=== PATIENT | male | born 1950 | race Caucasian/White ===

== ENCOUNTER → 2019-04-02 09:57 | Outpatient (BNVA) | payer MEDICARE, SELFPAY | PROVIDERS: Family Provider Family Medicine; PCP Family Medicine; Visit Provider Nurse Practitioner | DX: F43.12 Post-traumatic stress disorder, chronic (principal) | CPT/HCPCS: 99213 ==

== ENCOUNTER → 2019-06-25 07:37 | Outpatient (BNVA) | payer MEDICARE, SELFPAY | PROVIDERS: Family Provider Family Medicine; PCP Family Medicine; Visit Provider Nurse Practitioner | DX: F43.12 Post-traumatic stress disorder, chronic (principal); F33.1 Major depressive disorder, recurrent, moderate | CPT/HCPCS: 99213 ==

== ENCOUNTER 2019-07-05 16:08 | Outpatient (CLI) | payer MEDICARE, SELFPAY ==
--- NOTE | 2019-07-05 | CTR_ITS ---
PROCEDURE INFORMATION: Exam: CT Lumbar Spine Without Contrast Exam date and time: 07/05/2019 5:40 PM Age: 68 years old Clinical indication: Low back pain TECHNIQUE: Imaging protocol: Computed tomography images of the lumbar spine without contrast. Radiation optimization: All CT scans at this facility use at least one of these dose optimization techniques: automated exposure control; mA and/or kV adjustment per patient size (includes targeted exams where dose is matched to clinical indication); or iterative reconstruction. COMPARISON: No relevant prior studies available. RADIATION DOSE METRICS: Total DLP: 2471.56 mGy-cm FINDINGS: Vertebrae: There is a large lytic lesion within the right half of of the L2 vertebra. There is a pathologic fracture of the inferior endplate. There is extraosseous extension of soft tissue mass into the right paraspinous soft tissue. No extradural extension. There is mild compression of the superior endplate of L3 also probably pathologic. No extraosseous mass seen at this level. There is a lytic lesion in the right transverse process of L5. There is a lytic lesion in the right vertebral body at L4. There is a lytic lesion at L1 with a small pathologic fracture of the superior endplate. No significant loss of height of these vertebra. At L1 there is minimal extension into the ventral epidural space on the left, series 3 image 12 and 13. L2-L3: L1-L2: No significant disc protrusion. No severe spinal canal stenosis. No significant neural foraminal narrowing. L2-L3: Small posterior osteophyte and disc bulge. No central stenosis. Facet hypertrophy with mild bilateral foraminal stenosis. L3-L4: Advanced disc space narrowing. Slight retrolisthesis. Facet hypertrophy. No central stenosis. Moderate right and more severe left foraminal stenosis. L4-L5: Mild disc bulge. Facet hypertrophy with moderate to severe bilateral foraminal stenosis. L5-S1: Mild disc bulge. No central or foraminal stenosis. Other bones/joints: There is a lytic lesion within the left T12 posterior rib. Soft tissues: See Vertebrae finding. CT/CT lumbar spine wo con* [id number] IMPRESSION: Multiple lytic lesions highly consistent with metastatic disease or myeloma. There is a particularly large lesion within the right half of the L2 vertebra with pathologic fracture of the inferior endplate. There is extraosseous extension of this mass into the right paraspinous soft tissue. At L1 there is a pathologic fracture of the superior endplate. There is minimal extradural extension into the left ventral spinal canal without significant narrowing. There is a pathologic fracture of the superior endplate of L3 without compression. There are additional smaller lytic lesions. Radiation Dose CTDIVOL = (mGy): DLP = 2471.56 (mGy-cm)
--- NOTE | 2019-07-05 | CTR_ITS ---
PROCEDURE INFORMATION: Exam: CT Chest With Contrast Exam date and time: 07/05/2019 5:40 PM Age: 68 years old Clinical indication: Cough and other: Hemoptysis TECHNIQUE: Imaging protocol: Computed tomography of the chest with intravenous contrast. Radiation optimization: All CT scans at this facility use at least one of these dose optimization techniques: automated exposure control; mA and/or kV adjustment per patient size (includes targeted exams where dose is matched to clinical indication); or iterative reconstruction. Contrast material: OMNI 300; Contrast volume: 95 ml; Contrast route: IV; COMPARISON: [facility] [place] Chest 2 views 04/24/2018 1:04 PM RADIATION DOSE METRICS: Total DLP: 2471.56 mGy-cm FINDINGS: Lungs: There are multiple lung masses. The dominant mass is in the superior segment of the left lower lobe and measures up to 6.6 cm. In size. A 2nd left lower lobe mass measures 4.2 cm. There are several left upper lobe nodules, the largest measures 14 mm. There are multiple nodules in the right lung. In the right upper lobe the largest measures 17 mm. There are multiple smaller nodules. There are small right middle lobe nodules measuring up to 6 mm. The dominant lesion in the right lower lobe measures 2.7 cm. There are several additional smaller nodules. Pleural space: There is a moderate to large left pleural effusion. Heart: Unremarkable. No cardiomegaly. No pericardial effusion. Aorta: Unremarkable. No aortic aneurysm. Lymph nodes: There are markedly enlarged left hilar lymph nodes measuring up to 2.7 cm. There is a lymph node adjacent to the esophagus on the left measuring 2.4 cm in short axis. A subcarinal lymph node measures 1.8 cm in short axis. A right hilar lymph node measures 1.0 cm in short axis. There are AP window lymph nodes measuring up to 1 cm in short axis. Spleen: There is splenomegaly, 19.5 cm as far as visualized. No focal lesion. Bones/joints: There is multilevel ankylosis of the thoracic spine secondary to diffuse idiopathic skeletal hyperostosis. No pathologic fracture. There are lytic lesions within several vertebra including T7 and T8. There is a larger lytic lesion in the left transverse process of T9. There is minimal extension into the left epidural space at this level without significant compromise of the spinal canal. There is a lytic lesion in the left 12th rib posteriorly near the costovertebral junction. There is a large lytic lesion in the right scapula. Soft tissues: Unremarkable. CT/CT chest w con* [id number] IMPRESSION: 1. Multiple pulmonary masses. The dominant mass in the left lower lobe measures 6.6 cm, possibly a primary lung carcinoma. Multiple additional bilateral masses seen in all segments are probably metastatic. If primary carcinoma has not previously been diagnosed, recommend tissue diagnosis as per Fleischner protocol. 2. Enlarged mediastinal and hilar lymph nodes consistent with metastatic adenopathy. 3. Lytic osseous lesions consistent with osseous metastases. Radiation Dose CTDIVOL = (mGy): DLP = 2471.56 (mGy-cm)
[2019-07-05 16:55] LABS: D Dimer 5.61 ug/mIFEU (0-0.59)
== END 2019-07-05 16:09 | disposition home or self-care (01) ==
PROVIDERS: Family Provider Family Medicine; PCP Family Medicine; Visit Provider Family Medicine
DX: R10.13 Epigastric pain (principal); R04.2 Hemoptysis; M54.5 Low back pain; R91.8 Other nonspecific abnormal finding of lung field; R59.9 Enlarged lymph nodes, unspecified; M48.8X6 Other specified spondylopathies, lumbar region
CPT/HCPCS: 71260; 72131; 85378; Q9967

== ENCOUNTER 2019-07-11 11:56 | Outpatient (CLI) | payer MEDICARE, SELFPAY ==
[2019-07-11 12:34] VITALS: BP 146/80; PULSE 94; RESP 16; TEMP 36.4; BMI 29.5
--- NOTE | 2019-07-11 13:24 | XR_ITS ---
WS: [id number] CHEST XRAY TECHNIQUE: Portable chest. CLINICAL INFORMATION: POST THORACENTESIS COMPARISON: July 05, 2019 FINDINGS: Heart: Cardiomegaly Lungs: Post thoracentesis. No visualized pneumothorax. Stable large left parenchymal mass measuring 9 x 6 cm. Stable 2 to 2.5 cm nodules right upper lobe. Bones: Normal visualized bony structures. XR/XR chest 1V portable [id number] IMPRESSION: 1. Left postthoracentesis. No pneumothorax. 2. Residual small left pleural effusion. 3. Stable bilateral parenchymal lesions.
--- NOTE | 2019-07-11 15:33 | PM.ACPR ---
Procedure/Consent Time out: Time Out Performed: Yes Consent: Consent for Procedure: Consent obtained from patient Procedure Narrative: Name of the procedure: Left thoracentesis. Indication: Suspicion for malignant pleural effusion Anesthetics: Local anesthesia with 1% lidocaine. IV pain medication: None. Description of the procedure: The procedure was explained to the patient in detail including the risks and a consent was obtained. The left hemithorax was scanned with ultrasound to find a safe fluid pocket. Moderate free-flowing fluid was noted. There was no complexity. Following identification of the fluid pocket the site was marked. The site was cleaned using sterile technique. Lidocaine 1% was injected into the skin and the subcutaneous tissue. Subsequently, the periosteum in the parietal pleural was also anesthetized using lidocaine. The pleural space was entered in the posterior axillary line in the left seventh intercostal space. Bloody pleural fluid fluid was aspirated. 1 L of pleural fluid was aspirated. Sample: The pleural fluid was sent for cell count and differential, pH, protein, LDH, Gram stain and culture, fungal stain and culture, AFB stain and culture and cytology. Postprocedure chest x-ray did not show any pneumothorax. Acute Procedures Epistaxis Control: Time out performed: Yes
[2019-07-11 16:10] LABS: Appearance, Pleural Fluid CLOUDY (CLEAR); Color, Pleural Fluid Red (Pale Yellow)
[2019-07-11 16:11] LABS: Mononuclear %, Pleural Fluid 91 %; Polynuclear Cells, Pleural % 9 %; WBC Pleural Fluid 1890 /uL (0-1000)
[2019-07-11 16:12] LABS: PATH Referal YES
[2019-07-11 17:17] LABS: LDH Pleural Fluid 1185 U/L; Total Protein Pleural Fluid 5.2 g/dL
== END 2019-07-11 11:57 | disposition home or self-care (01) ==
LOC: GILAB 11:59
PROVIDERS: PCP Family Medicine; Visit Provider Internal Medicine Critical Care Medicine
DX: J90 Pleural effusion, not elsewhere classified (principal)
CPT/HCPCS: 12345; 32555; 71045; 80500; 82945; 83615; 83986; 84157; 87070; 87075; 87205; 88112; 88305; 89050

== ENCOUNTER 2019-07-15 11:42 | Emergency (ER) | payer MEDICARE, SELFPAY ==
[2019-07-15 12:03] VITALS: BP 119/79; PULSE 129; RESP 18; TEMP 36.8; O2SAT 95; BMI 29.5
[2019-07-15 12:24] VITALS: BP 125/81; PULSE 113; RESP 16; O2SAT 93
--- NOTE | 2019-07-15 12:46 | MRR_ITS ---
PROCEDURE INFORMATION: Exam: MR Lumbar Spine Without and With Contrast. Exam date and time: 07/15/2019 2:48 PM Age: 68 years old Clinical indication: Condition or disease; Cancer, metastatic (secondary site lumbar); Other: Urinary retention; Patient HX: HX of myeloma; Additional info: Mets to spine, urinary retention TECHNIQUE: Imaging protocol: Multiplanar magnetic resonance images of the lumbar spine without and with intravenous contrast. Contrast material: PROHANCE; Contrast volume: 17 ml; Contrast route: IV; COMPARISON: CT lumbar spine wo con* [id number] 07/05/2019 5:57 PM FINDINGS: Vertebrae: There are multiple foci of abnormal signal within the vertebral marrow. These are seen as areas of hyperintense heterogeneous signal on STIR images and decreased signal on T1 weighted images. There is enhancement of these lesions. Most superiorly on the sagittal images a large lesion is seen within the right vertebra, pedicle and facet at T11. No axial images provided at this level. No extradural extension identified. There is a large lesion within the left transverse process of T12 seen on sagittal images. No axial images at this level.There is a large lesion within the left superior vertebral body at L1. This extends slightly into the left pedicle. Minimal extension into the left ventral epidural space is seen on sagittal images. This lesion also was not included on axial images. There is a large lesion within the right half of the vertebra at L2. There is extraosseous extension into the right paraspinous region, extending into the right psoas muscle. No extradural extension. There is a small lesion in the L4 vertebra and in the right pedicle and facet of L5 without extradural extension. Spinal cord: No abnormality of the lower thoracic spinal cord, conus or cauda equina. No compression of these structures. L1-L2: No significant disc disease. No significant spinal canal stenosis. No neural foraminal stenosis. L2-L3: Disc dehydration and disc space narrowing with a mild disc bulge. There is facet hypertrophy with mild bilateral foraminal stenosis. No central stenosis. L3-L4: Disc dehydration and disc space narrowing. Mild disc bulge. There is facet hypertrophy with moderate to severe foraminal stenosis. No central stenosis. L4-L5: Disc dehydration and disc space narrowing. Mild disc bulge. There is facet hypertrophy with severe bilateral foraminal stenosis. No central stenosis. L5-S1: No significant disc disease. No significant spinal canal stenosis. No neural foraminal stenosis. Soft tissues: Mild paraspinous muscle edema. MR/MR lumbar spine wo/w con [id number] IMPRESSION: 1. Metastatic disease at multiple levels. The largest lesion is within the right half of the L2 vertebra with extraosseous extension into the right psoas muscle. 2. Metastatic lesion within the superior left L1 vertebra with minimal extension into the ventral epidural space. There also large lesions in the left transverse process of T12 and in the right pedicle and transverse process of T11. These lesions were not included on axial images. 3. Smaller lesions are present within the vertebral body at L4 and the right pedicle of L5. 4. Degenerative findings detailed above.
[2019-07-15 12:50] LABS: Basophils % 0.3 %; Eosinophils # 0.1 10^3/uL (0.0-0.8); Eosinophils % 2.1 %; Hematocrit 43.8 % (42.0-52.0); Hemoglobin 14.5 g/dL (11.7-16.6); Lymphocytes # 0.7 10^3/uL (0.8-4.8); Lymphocytes % 10.5 %; Mean Corpuscular HGB Conc 33.1 g/dL (30.0-36.0); Mean Corpuscular Hemoglobin 29.3 pg (28.0-34.0); Mean Corpuscular Volume 88.5 fL (80-94); Mean Platelet Volume 10.4 fL (7.4-10.4); Monocytes # 0.6 10^3/uL (0.2-0.9); Monocytes % 9.2 %; Neutrophils # 4.8 10^3/uL (1.8-7.7); Neutrophils % 77.4 %; Nucleated Red Blood Cells % 0 %; Platelet Count 180 10^3/cmm (130-400); Red Blood Count 4.95 10^6/uL (4.1-5.3); Red Cell Distribution Width 13.3 % (12.1-15.1); White Blood Count 6.2 10^3/uL (4.0-10.0)
[2019-07-15] MEDS: ondansetron 2 mg/ML SDV 2 mL 4 MG IVP (12:51)
[2019-07-15] MEDS: morphine 4 mg/mL SDV 1 mL IVP (12:51)
[2019-07-15] MEDS: LORazepam 2 mg/mL INJ 1 mL 0.5 MG IVP (12:51)
[2019-07-15 13:04] LABS: Alanine Aminotransferase 7 U/L (0-41); Alkaline Phosphatase 79 IU/L (40-130); Anion Gap 18.2 (5-19); Aspartate Amino Transferase 18 U/L (0-40); Blood Urea Nitrogen 16 mg/dL (8-23); Calcium 9.5 mg/dL (8.5-10.5); Carbon Dioxide 24 mmol/L (22-29); Chloride 96 mmol/L (98-107); Globulin 3.2 g/dL (1.3-4.6); Glomerular Filtration Rate 133.2 mL/min (90-130); Glucose 139 mg/dL (65-115); Osmolality Calculated 277 mOsm/kg (285-295); Potassium 4.2 mmol/L (3.5-5.1); Sodium 134 mmol/L (136-145); Total Bilirubin 0.6 mg/dL (0.15-1.2); Total Protein 7.2 g/dL (6.6-8.7)
[2019-07-15 13:22] VITALS: BP 114/74; PULSE 106; RESP 16; O2SAT 93
[2019-07-15 13:29] LABS: Add Urine Microscopic? NO
[2019-07-15 13:32] LABS: Bilirubin Urine 1+ (NEGATIVE); Blood Urine Neg (Negative); Glucose Urine UA Norm (Normal); Ketones Urine 1+ (Negative); Leukocyte Esterase Urine Negative (Negative); Nitrate Urine Negative (Negative); Protein Urine Neg (Negative); Urine Appearance Clear (CLEAR); Urine Color Yellow (Yellow); Urobilinogen Urine Norm (Negative); pH Urine 5 (5-7)
--- NOTE | 2019-07-15 13:47 | W.ED.GENADLT ---
HPI - General Adult General: Chief complaint: General Medical Stated complaint: CANT URINATE Time Seen by Provider: 07/15/19 12:16 History of Present Illness: HPI narrative: Patient is a 68-year-old gentleman who comes in today complaining of back pain and inability to urinate. He tells me that on he was diagnosed with lung cancer and has bone mets in his lower back. He also tells me that he is had chronic back pain for years but it is been getting steadily worse recently. The last time he was able to urinate normally was 2 days ago. Since then he has been having increasing difficulty and this morning was only able to go about 3 tablespoons. He is having discomfort in his bladder area. He takes oxycodone at home and is taking it for years for his back pain. He tried taking tramadol yesterday but had a very unpleasant reaction to it with sweating and clamminess. Apparently he also was hallucinating with it. He took his usual oxycodone today but is still having significant pain. Onset (ago): day(s) (2) Location: back and pelvis Radiation: non-radiation Severity: severe Associated symptoms: Reports chest pain and dyspnea; Deny headache(s), malaise, nausea, rash or vomiting Review of Systems General: Reports: 10 or more systems reviewed and unremarkable except in HPI and below Const: Denies: fever(s), chills, fatigue or malaise Eyes: Denies: change in vision ENMT: Denies: odynophagia Card: Reports: chest pain and dyspnea on exertion; Denies: swelling of feet/ankles Resp: Reports: dyspnea, productive cough and hemoptysis; Denies: non-productive cough GI: Denies: abdominal pain, nausea or vomiting : Reports: difficulty urinating; Denies: flank pain Musc: Reports: back pain; Denies: neck pain, extremity pain or extremity swelling Skin/Breast: Denies: rash Neuro: Reports: difficulty walking (Secondary to pain); Denies: headache(s), numbness in extremities or weakness in extremities Andreas/Lymph: Denies: easy bruising or easy bleeding PFS ED PFSH: Medical History ASHD (arteriosclerotic heart disease) Hyperlipidemia Post-traumatic stress disorder, chronic Rotator cuff arthropathy Surgical History History of carpal tunnel surgery Stented coronary artery Family History Father CAD (coronary artery disease) Family history of premature coronary artery disease Sister CAD (coronary artery disease) Diabetes Brother CAD (coronary artery disease) Mother Cancer Social History Smoking and tobacco status: never smoked Alcohol intake: current Alcohol intake frequency: holidays/special occasions only Alcohol type: beer Lives independently: Yes Household members: spouse Marital status: Number of children: 1 Number of grandchildren: 4 Current occupational status: retired History of recent travel: No Current gender identity: Male Physical Exam Const: COMMON NORMALS: patient oriented x3, no limitations and alert GENERAL APPEARANCE: cooperative, in distress and anxious HENMT: HEAD & SCALP: normal to inspection FACE & SINUS: normal facial exam Eye: GENERAL EYE: appearance normal, both eyes and all related structures Neck/C-Spine: COMMON NORMALS: supple, no meningeal signs and no JVD Chest: COMMONS NORMALS: normal inspection of the chest Resp: COMMON NORMALS: normal respiratory effort, No use of accessory muscles and clear to auscultation bilaterally AUSCULTATION: clear to auscultation bilaterally Cardio: COMMON NORMALS: no JVD, regular rate, regular rhythm and No murmurs present (Cardio) RATE: regular rate RHYTHM: regular rhythm GI: COMMON NORMALS: Normal to inspection, nondistended, normoactive bowel sounds present, Soft to palpation and non-tender INSPECTION: Yes normal to inspection AUSCULTATION: Yes normoactive bowel sounds PALPATION: Yes Soft to palpation and Yes Bladder palpation abnormal : BLADDER/KIDNEY EXAM: Yes Bladder palpation abnormal Bladder abnormal details: tender and distended midway to the umbilicus Back/Pelvis: LUMBAR SPINE/LOWER BACK: Yes ROM limited and Yes pain with ROM Extremity: COMMON NORMALS: normal to inspection Neuro: COMMON NORMALS: patient oriented x3, moves all extremities, no focal motor deficits and no sensory deficits noted SENSORIUM/ORIENTATION: Yes alert MENINGEAL SIGNS: Yes no meningeal signs Psych: COMMON NORMALS: mental status grossly normal, cooperative and normal affect Skin: COMMON NORMALS: no rashes or lesions noted and turgor normal GENERAL SKIN EXAM: no rashes or lesions noted and turgor normal Course ED course: Patient with recent diagnosis of metastatic lung cancer. I also read in his previous chart that he has a history of melanoma and this could potentially be metastatic melanoma. He does have known bony mets in his back and now has inability to urinate. This could be related to medications or pain however given the known lesions I think an MRI is reasonable. He had a CT on July 04 showing these lesions particularly in L2 vertebrae inferior endplate fracture with extension into the soft tissue as well as some extension into the spinal canal. Reevaluation(s): Reevaluation #1: The patient reported feeling better after some pain medication. His MRI was done and showed extensive metastatic disease but did not show any compression whatsoever of the spinal cord. I offered him admission and he wanted very much to go home. He has been taking oxycodone at home but is afraid that he skin a run out before he sees his doctor next. I will respect his wishes to go home. I also gave him a new prescription for oxycodone. He understands that he is welcome to return if he does want better pain control or if he has any further problems. He was discharged with the Ha in place and a leg bag. Vital Signs: Vital signs: Vital Signs Temperature 98.3 F 07/15/19 12:03 Pulse Rate 100 07/15/19 16:50 Respiratory Rate 16 07/15/19 16:50 Blood Pressure 127/72 07/15/19 16:50 Pulse Oximetry 93 07/15/19 16:50 [facility] - General Adult Lab Data: Labs: Lab Results 07/15/19 07/15/19 07/15/19 Range/Units 12:40 12:40 13:10 WBC 6.2 (4.0-10.0) 10^3/ uL RBC 4.95 (4.1-5.3) 10^6/u L Hgb 14.5 (11.7-16.6) g/dL Hct 43.8 (42.0-52.0) % MCV 88.5 (80-94) fL MCH 29.3 (28.0-34.0) pg MCHC 33.1 (30.0-36.0) g/dL RDW 13.3 (12.1-15.1) % Plt Count 180 (130-400) 10^3/c mm MPV 10.4 (7.4-10.4) fL Neut % (Auto) 77.4 % Lymph % (Auto) 10.5 % Sequoyah % (Auto) 9.2 % Eos % (Auto) 2.1 % Baso % (Auto) 0.3 % Neut # (Auto) 4.8 (1.8-7.7) 10^3/u L Lymph # (Auto) 0.7 L (0.8-4.8) 10^3/u L Sequoyah # (Auto) 0.6 (0.2-0.9) 10^3/u L Eos # (Auto) 0.1 (0.0-0.8) 10^3/u L Baso # (Auto) 0.0 (0.0-0.1) 10^3/u L Nucleated RBC % (a uto) 0 % Nucleated RBCs # 0.0 /100WBC Sodium 134 L (136-145) mmol/L Potassium 4.2 (3.5-5.1) mmol/L Chloride 96 L (98-107) mmol/L Carbon Dioxide 24 (22-29) mmol/L Anion Gap 18.2 (5-19) BUN 16 (8-23) mg/dL Creatinine 0.6 L (0.7-1.2) mg/dL GFR Calculation 133.2 H (90-130) mL/min Glucose 139 H (65-115) mg/dL Calculated Osmolal ity 277 L (285-295) mOsm/k g Calcium 9.5 (8.5-10.5) mg/dL Total Bilirubin 0.6 (0.15-1.2) mg/dL AST 18 (0-40) U/L ALT 7 (0-41) U/L Alkaline Phosphata se 79 (40-130) IU/L Total Protein 7.2 (6.6-8.7) g/dL Albumin 4.0 (3.5-5.2) g/dL Globulin 3.2 (1.3-4.6) g/dL Urine Color Yellow (Yellow) Urine Appearance Clear (CLEAR) Urine pH 5 (5-7) Ur Specific Gravit y 1.020 (1.005-1.030) Urine Protein Neg (Negative) Urine Glucose (UA) Norm (Normal) Urine Ketones 1+ H (Negative) Urine Blood Neg (Negative) Urine Nitrate Negative (Negative) Urine Bilirubin 1+ H (NEGATIVE) Urine Urobilinogen Norm (Negative) mg/dL Ur Leukocyte Dottie ase Negative (Negative) Discharge Plan Discharge Patient Disposition: Home, Self-Care Clinical Impression: Metastatic cancer, Acute urinary retention Condition: Stable Prescriptions: New oxycodone 5 mg tablet 5 mg PO Q4H PRN (Reason: pain) Qty: 30 RF: 0 No Action famotidine 20 mg tablet 20 mg PO BID RF: 0 sertraline 100 mg tablet 200 mg PO Q24H Qty: 180 RF: 0 trazodone 100 mg tablet 100 mg PO .HS Qty: 90 RF: 0 prazosin 1 mg capsule 1 mg PO BID Qty: 180 RF: 0 clonazepam 0.5 mg tablet 0.5 mg PO BID PRN (Reason: anxiety) Qty: 60 RF: 2 gabapentin 300 mg capsule 300 mg PO TID RF: 0 atenolol 25 mg tablet 25 mg PO DAILY RF: 0 omega-3 fatty acids [Fish Oil Concentrate] 1,000 mg capsule 1,000 mg PO DAILY RF: 0 pravastatin 40 mg tablet 40 mg PO DAILY RF: 0 cetirizine [All Day Allergy (cetirizine)] 10 mg tablet 10 mg PO DAILY PRN (Reason: Allergic Symptoms) RF: 0 clopidogrel 75 mg tablet 75 mg PO DAILY RF: 0 meloxicam 15 mg tablet 15 mg PO DAILY RF: 0 Discharge Orders: Discharge Order (Routine); Ordered 07/15/19 Ordered By: Trisha Hardy Referrals: Casa Zhu MD [Primary Care Provider] - Discharge Diet: Usual diet Discharge Activity: Increase activity as tolerated Patient Instructions: Back Pain (ED) Activity Restrictions/Additional Instructions: Return to the ED if your pain is not controlled, or if any other concerns or problems. Discharge Date/Time: 07/15/19 16:53 Coding Level of Care Code ED [employer] Vehicle [employer] for [employer] F[employer] Exam Comprehensive
[2019-07-15 16:00] VITALS: BP 123/70; PULSE 103; RESP 12; O2SAT 89
[2019-07-15 16:50] VITALS: BP 127/72; PULSE 100; RESP 16; O2SAT 93
== END 2019-07-15 16:53 | disposition home or self-care (01) ==
PROVIDERS: Emergency Provider Emergency Medicine; PCP Family Medicine
DX: R33.9 Retention of urine, unspecified (principal); C34.90 Malignant neoplasm of unspecified part of unspecified bronchus or lung; E78.5 Hyperlipidemia, unspecified
CPT/HCPCS: 12345; 51702; 72158; 80053; 81003; 85025; 96374; 96375; 99283; A9579; J2060; J2270; J2405

== ENCOUNTER 2019-07-16 21:46 | Observation (INO) | payer MEDICARE, SELFPAY ==
[2019-07-16 21:49] VITALS: BP 133/79; PULSE 106; RESP 18; O2SAT 97; BMI 30.5
--- NOTE | 2019-07-16 21:53 | XR_ITS ---
WS: [id number] PORTABLE CHEST HISTORY: Pain COMPARISON: 07/11/2019 Bilateral pulmonary known metastases. The largest in the central LEFT lung with a maximum diameter of 5.9 cm. Overall taking into consideration difference in orientation no significant difference radiog raphically. Small LEFT pleural effusion is unchanged. LEFT basilar atelectasis. Cardiac size: Mildly enlarged cardiac silhouette. Mediastinum/Aorta: Normal mediastinum. No osseous abnormality seen. XR/XR chest 1V portable [id number] IMPRESSION: 1. Known bilateral pulmonary metastases. No significant change taking consider ation difference in positioning. 2. Small LEFT pleural effusion.
--- NOTE | 2019-07-16 21:58 | W.ED.ABDPA2 ---
HPI - Abdominal Pain General: Chief Complaint: Abdominal Pain Stated Complaint: RIGHT FLANK PAIN Time Seen by Provider: 07/16/19 21:51 History of Present Illness: HPI narrative: Mr. Castellanos is a very nice 68-year-old male who comes in with severe pain on his right flank. Patient states the pains been going on for 2 to 3 days now. He was seen here yesterday for this complaint along with urinary retention. He had a Ha catheter placed and an MRI performed which showed metastatic cancer to his spine but there was no evidence of cauda equina type syndrome. He got pain relief here but since going home he is developed worsening pain in his back and right flank. He has associated nausea but denies vomiting or any fevers or chills. He denies any chest pain or shortness of breath. He states oxycodone helps his pain for a short time but then it returns and he cannot get relief from this pain. Patient also states now he is seeing pieces of black sediment in his catheter. He does state that his catheter is continuing to drain and has not stopped draining urine. The patient has a recent diagnosis of lung cancer but has not started treatment. During history the patient has coughed up a small amount of blood. He states this is been going on for 2 weeks as well. Associated Symptoms: Reports hematuria and nausea; Denies chills, coffee ground emesis, constipation, GI cramping, diarrhea, dysuria, fever(s), heartburn, hematochezia, hematemesis, melena, syncope and vomiting Review of Systems Const: Reports: body aches; Denies: fever(s), chills, fatigue, malaise, night sweats or diaphoresis Eyes: Denies: change in vision, blurry vision or blind spots ENMT: Denies: throat pain, odynophagia, hoarseness, ear or mastoid pain, ear discharge, change in hearing or nasal discharge Card: Denies: chest pain, palpitations, irregular heart rhythm, lightheadedness, syncope, pre-syncope, dyspnea on exertion or orthopnea Resp: Denies: dyspnea, productive cough, non-productive cough, wheezing, hemoptysis or chest congestion GI: Reports: abdominal pain and nausea; Denies: vomiting, hematemesis, coffee ground emesis, heartburn, diarrhea, constipation, GI cramping, hematochezia or melena : Reports: flank pain and hematuria; Denies: dysuria, urinary frequency, urinary urgency, oliguria or urinary incontinence Musc: Reports: back pain; Denies: neck pain, extremity pain, extremity swelling, joint pain, joint swelling, joint redness, joint warmth or joint stiffness Skin/Breast: Denies: rash, pruritus, erythema, skin tenderness or jaundice Neuro: Denies: headache(s), numbness in extremities, weakness in extremities, sensory changes, lack of coordination, difficulty walking, dizziness, vertigo, confusion or Slurred speech present Endo: Denies: polyuria, polydipsia, tired all the time, cold intolerance, excessive sweating, flushing, hot flashes or heat intolerance Andreas/Lymph: Denies: easy bruising, easy bleeding, petechiae, purpura or enlarged lymph nodes All/Imm: Denies: urticaria, throat swelling, tongue swelling, facial swelling or acute wheezing PFSH ED PFSH: Medical History ASHD (arteriosclerotic heart disease) Hyperlipidemia Metastatic cancer Lung Post-traumatic stress disorder, chronic Rotator cuff arthropathy Surgical History History of carpal tunnel surgery Stented coronary artery Family History Father CAD (coronary artery disease) Family history of premature coronary artery disease Sister CAD (coronary artery disease) Diabetes Brother CAD (coronary artery disease) Mother Cancer Social History Smoking and tobacco status: never smoked Alcohol intake: current Alcohol intake frequency: holidays/special occasions only Alcohol type: beer Lives independently: Yes Household members: spouse Marital status: Number of children: 1 Number of grandchildren: 4 Current occupational status: retired History of recent travel: No Current gender identity: Male Physical Exam Const: COMMON NORMALS: no acute distress, patient oriented x3, no limitations, healthy appearing and well nourished EXAM LIMITATIONS: no altered mental status GENERAL APPEARANCE: cooperative, well kempt and well developed HENMT: COMMON NORMALS: normocephalic, atraumatic, hearing grossly normal bilaterally, external ears normal, EAC's normal, Normal external nose present and moist oral mucous membranes HEAD & SCALP: normal to inspection, normocephalic and atraumatic FACE & SINUS: normal facial exam and face symmetric NOSE: Normal external nose present and Normal nares present EXTERNAL EAR: Yes external ears normal EXTERNAL AUDITORY CANAL: EAC's normal MOUTH: Normal oral and palatal mucosa present, lip normal and tongue normal Eye: COMMON NORMALS: Equal, round and reactive pupils present, EOMs intact bilaterally, conjunctivae normal and no scleral icterus GENERAL EYE: appearance normal, both eyes and all related structures ALIGNMENT: Yes alignment normal PERIORBITAL: periorbital findings normal EYELID: eyelids normal CONJUNCTIVA: Yes conjunctivae normal SCLERA: sclerae normal PUPIL: Yes Equal, round and reactive pupils present Neck/C-Spine: COMMON NORMALS: full ROM, no lymphadenopathy, supple, no meningeal signs and no JVD GENERAL: Yes normal visual inspection and Yes trachea midline CERVICAL SPINE: Yes cervical ROM normal Chest: COMMONS NORMALS: normal inspection of the chest and normal palpation of entire chest wall Resp: COMMON NORMALS: normal respiratory effort, No retractions, No use of accessory muscles and clear to auscultation bilaterally EFFORT & INSPECTION: Yes able to speak in complete sentences AUSCULTATION: clear to auscultation bilaterally, no crackles, no rales, no rhonchi and no wheezes Cardio: COMMON NORMALS: no JVD, regular rate, regular rhythm, S1 normal heart sound present, S2 normal heart sound present, No gallops present (Cardio), No clicks present (Cardio), No murmurs present (Cardio) and No rub (Cardio) RATE: regular rate RHYTHM: regular rhythm HEART SOUNDS: S1 normal heart sound present, S2 normal heart sound present, no click, no gallops, no murmurs and no rubs GI: COMMON NORMALS: Soft to palpation, No hepatosplenomegaly present and no masses PALPATION: Yes Soft to palpation, Yes Tenderness to palpation present (GI) Details: RLQ and RUQ, No Guarding due to palpation present (GI), No Rigid due to palpation, Yes No hepatosplenomegaly present, No Hernia present, No Palpable mass present and No Pulsatile mass present : BLADDER/KIDNEY EXAM: Yes CVA tenderness on the right Back/Pelvis: COMMON NORMALS: thoracic and lumbar spine normal to inspection, no thoracic nor lumbar tenderness and thoraco-lumbar ROM normal GENERAL BACK: Yes CVA tenderness Extremity: COMMON NORMALS: normal to inspection, full ROM, capillary refill normal, no joint enlargement, no clubbing, cyanosis or edema and no calf tenderness Neuro: COMMON NORMALS: patient oriented x3, CN's II-XII intact bilaterally, moves all extremities, no focal motor deficits and no sensory deficits noted MENINGEAL SIGNS: Yes no meningeal signs SPEECH: speech normal Psych: COMMON NORMALS: mental status grossly normal, Normal thought process present, cooperative, normal affect, speech normal and activity/motor behavior normal APPEARANCE: Yes well kempt SPEECH: Yes normal speech THOUGHT PROCESS: Normal thought process present Skin: COMMON NORMALS: no rashes or lesions noted, turgor normal, no jaundice, no petechiae and no mottling GENERAL SKIN EXAM: no rashes or lesions noted and turgor normal Course Vital Signs: Vital signs: Vital Signs Pulse Rate 99 07/17/19 00:10 Respiratory Rate 14 07/17/19 00:10 Blood Pressure 107/74 07/17/19 00:10 Pulse Oximetry 95 07/17/19 00:10 MDM - Abdominal Pain MDM Narrative: Medical decision making narrative: Arrival -Mr. Castellanos is a 68-year-old male who comes in complaining of right flank pain that is been going on for at least 2 days. He was seen here yesterday for the same complaint and had a concern of urinary retention. MRI was done that showed metastatic lesions but nothing that was compressing the cord to suggest a cauda equina type syndrome. Patient comes back stating he hurts severely on that side and is having things passing out down his catheter. Differential is extensive including kidney stones, pyelonephritis, AAA, appendicitis, bowel obstruction, metastatic disease among many others. This time we will initiate work-up for acute lethargy and causes of his abdominal pain and work to relieve his pain and hydrate him moving forward. Admission -the patient's case was endorsed to Dr. Gay and he agrees to admit for pain control. I believe the patient's pain is more likely caused by a metastatic lesion that is going into his psoas muscle. He does have a UTI but CT does not demonstrate any sign of pyelonephritis and clinically he appears to have more of a musculoskeletal pain than an infectious cause for his pain. Lab Data: Attestation: I reviewed the patient's lab results. Labs: Lab Results 07/16/19 07/16/19 07/16/19 Range/Units 22:20 22:20 22:20 WBC 7.2 (4.0-10.0) 10^3/ uL RBC 4.93 (4.1-5.3) 10^6/u L Hgb 14.3 (11.7-16.6) g/dL Hct 43.8 (42.0-52.0) % MCV 88.8 (80-94) fL MCH 29.0 (28.0-34.0) pg MCHC 32.6 (30.0-36.0) g/dL RDW 13.2 (12.1-15.1) % Plt Count 227 (130-400) 10^3/c mm MPV 10.5 H (7.4-10.4) fL Neut % (Auto) 74.6 % Lymph % (Auto) 12.5 % Lassen % (Auto) 10.7 % Eos % (Auto) 1.5 % Baso % (Auto) 0.3 % Neut # (Auto) 5.4 (1.8-7.7) 10^3/u L Lymph # (Auto) 0.9 (0.8-4.8) 10^3/u L Lassen # (Auto) 0.8 (0.2-0.9) 10^3/u L Eos # (Auto) 0.1 (0.0-0.8) 10^3/u L Baso # (Auto) 0.0 (0.0-0.1) 10^3/u L Nucleated RBC % (a uto) 0 % Nucleated RBCs # 0.0 /100WBC Sodium 134 L (136-145) mmol/L Potassium 3.8 (3.5-5.1) mmol/L Chloride 95 L (98-107) mmol/L Carbon Dioxide 24 (22-29) mmol/L Anion Gap 18.8 (5-19) BUN 17 (8-23) mg/dL Creatinine 0.6 L (0.7-1.2) mg/dL GFR Calculation 133.2 H (90-130) mL/min Glucose 108 (65-115) mg/dL Calculated Osmolal ity 275 L (285-295) mOsm/k g Lactic Acid (0.5-2.2) mmol/L Calcium 9.6 (8.5-10.5) mg/dL Total Bilirubin 0.5 (0.15-1.2) mg/dL AST 20 (0-40) U/L ALT 7 (0-41) U/L Alkaline Phosphata se 75 (40-130) IU/L Troponin T Baselin e 33 H (0-15) ng/mL Total Protein 6.9 (6.6-8.7) g/dL Albumin 3.7 (3.5-5.2) g/dL Globulin 3.2 (1.3-4.6) g/dL Lipase 34 (13-60) U/L Urine Color (Yellow) Urine Appearance (CLEAR) Urine pH (5-7) Ur Specific Gravit y (1.005-1.030) Urine Protein (Negative) Urine Glucose (UA) (Normal) Urine Ketones (Negative) Urine Blood (Negative) Urine Nitrate (Negative) Urine Bilirubin (NEGATIVE) Urine Urobilinogen (Negative) mg/dL Ur Leukocyte Dottie ase (Negative) Urine RBC (0-2) /hpf Urine WBC (0-5) /hpf Ur Squamous Epith Cells (0-5) Urine Bacteria (NONE) 07/16/19 07/16/19 Range/Units 22:30 22:36 WBC (4.0-10.0) 10^3/ uL RBC (4.1-5.3) 10^6/u L Hgb (11.7-16.6) g/dL Hct (42.0-52.0) % MCV (80-94) fL MCH (28.0-34.0) pg MCHC (30.0-36.0) g/dL RDW (12.1-15.1) % Plt Count (130-400) 10^3/c mm MPV (7.4-10.4) fL Neut % (Auto) % Lymph % (Auto) % Lassen % (Auto) % Eos % (Auto) % Baso % (Auto) % Neut # (Auto) (1.8-7.7) 10^3/u L Lymph # (Auto) (0.8-4.8) 10^3/u L Lassen # (Auto) (0.2-0.9) 10^3/u L Eos # (Auto) (0.0-0.8) 10^3/u L Baso # (Auto) (0.0-0.1) 10^3/u L Nucleated RBC % (a uto) % Nucleated RBCs # /100WBC Sodium (136-145) mmol/L Potassium (3.5-5.1) mmol/L Chloride (98-107) mmol/L Carbon Dioxide (22-29) mmol/L Anion Gap (5-19) BUN (8-23) mg/dL Creatinine (0.7-1.2) mg/dL GFR Calculation (90-130) mL/min Glucose (65-115) mg/dL Calculated Osmolal ity (285-295) mOsm/k g Lactic Acid 1.3 (0.5-2.2) mmol/L Calcium (8.5-10.5) mg/dL Total Bilirubin (0.15-1.2) mg/dL AST (0-40) U/L ALT (0-41) U/L Alkaline Phosphata se (40-130) IU/L Troponin T Baselin e (0-15) ng/mL Total Protein (6.6-8.7) g/dL Albumin (3.5-5.2) g/dL Globulin (1.3-4.6) g/dL Lipase (13-60) U/L Urine Color Yellow (Yellow) Urine Appearance Sl hazy (CLEAR) Urine pH 5 (5-7) Ur Specific Gravit y 1.020 (1.005-1.030) Urine Protein Neg (Negative) Urine Glucose (UA) Norm (Normal) Urine Ketones Negative (Negative) Urine Blood 3+ H (Negative) Urine Nitrate Negative (Negative) Urine Bilirubin Neg (NEGATIVE) Urine Urobilinogen Norm (Negative) mg/dL Ur Leukocyte Dottie ase 1+ H (Negative) Urine RBC 0-4 H (0-2) /hpf Urine WBC 15-25 H (0-5) /hpf Ur Squamous Epith Cells 0-4 H (0-5) Urine Bacteria 1+ H (NONE) Imaging Data ^: CXR: Attestation: I personally reviewed and interpreted this imaging study as follows: My impression: Left-sided pleural effusion with mass noted on left with smaller masses presumed to be metastatic disease on the right. Similar to previous. Pleural effusion increased from previous. EKG Data ^: EKG 1: Attestation: I personally reviewed and interpreted this EKG as follows: EKG interpretation date: 07/17/19 EKG interpretation time: 23:58 Interpretation: Normal sinus rhythm at 97 beats a minute, no acute ST or T wave changes. Discharge Plan Discharge Patient Disposition: Placed in Observation Clinical Impression: Intractable low back pain, Metastatic primary lung cancer, Acute UTI Condition: Stable Prescriptions: No Action sertraline 100 mg tablet 200 mg PO Q24H Qty: 180 RF: 0 trazodone 100 mg tablet 100 mg PO .HS Qty: 90 RF: 0 prazosin 1 mg capsule 1 mg PO BID Qty: 180 RF: 0 clonazepam 0.5 mg tablet 0.5 mg PO BID PRN (Reason: anxiety) Qty: 60 RF: 2 gabapentin 300 mg capsule 300 mg PO TID RF: 0 atenolol 25 mg tablet 25 mg PO DAILY RF: 0 pravastatin 40 mg tablet 40 mg PO DAILY RF: 0 clopidogrel 75 mg tablet 75 mg PO DAILY RF: 0 meloxicam 15 mg tablet 15 mg PO DAILY RF: 0 oxycodone 5 mg tablet 5 mg PO Q4H PRN (Reason: pain) Qty: 30 RF: 0 calcitonin (salmon) 200 unit/actuation spray,non-aerosol 1 spray intranasal DAILY RF: 0 Ranitidine 300 mg capsule 300 mg PO DAILY RF: 0 Referrals: Casa Zhu MD [Primary Care Provider] - Coding Level of Care Code ED Range Management Specialist for Chg Fwd Exam Comprehensive
--- NOTE | 2019-07-16 22:10 | PC.NURSE ---
PATIENT WAS SEEN IN THE ER AND CATHETER PLACED RECENTLY. PATIENT STATES HE STARTED HAVING HAVING FLANK PAIN WITH THE RIGHT SIDE BEING THE WORST. PATIENT STATES HE HAS LUNG AND SPINE CANCER. PATIENT STATES HE HAS BEEN HAVING FLAKES OF BLACK/METALLIC IN HIS URINE.
[2019-07-16 22:12] VITALS: BP 115/83; PULSE 103; RESP 16; O2SAT 97
[2019-07-16] MEDS: iohexol 300 mg/mL 100 mL Btl IV (22:24)
[2019-07-16 22:27] VITALS: RESP 18; O2SAT 94
[2019-07-16] MEDS: HYDROmorphone 1 mg/mL INJ 1 mL 0.5 MG IVP (22:27)
[2019-07-16] MEDS: ondansetron 2 mg/ML SDV 2 mL 4 MG IVP (22:28)
[2019-07-16] MEDS: sodium chloride 0.9% 1,000 ML 100 ML IV (22:29)
[2019-07-16 22:35] VITALS: BP 118/80; PULSE 102; RESP 17; O2SAT 94
[2019-07-16 22:44] LABS: Basophils % 0.3 %; Eosinophils # 0.1 10^3/uL (0.0-0.8); Eosinophils % 1.5 %; Hematocrit 43.8 % (42.0-52.0); Hemoglobin 14.3 g/dL (11.7-16.6); Lymphocytes # 0.9 10^3/uL (0.8-4.8); Lymphocytes % 12.5 %; Mean Corpuscular HGB Conc 32.6 g/dL (30.0-36.0); Mean Corpuscular Volume 88.8 fL (80-94); Mean Platelet Volume 10.5 fL (7.4-10.4); Monocytes # 0.8 10^3/uL (0.2-0.9); Monocytes % 10.7 %; Neutrophils # 5.4 10^3/uL (1.8-7.7); Neutrophils % 74.6 %; Nucleated Red Blood Cells % 0 %; Platelet Count 227 10^3/cmm (130-400); Red Blood Count 4.93 10^6/uL (4.1-5.3); Red Cell Distribution Width 13.2 % (12.1-15.1); White Blood Count 7.2 10^3/uL (4.0-10.0)
--- NOTE | 2019-07-16 22:44 | CTR_ITS ---
PROCEDURE INFORMATION: Exam: CT Angiography Chest Without And With Contrast Exam date and time: 07/16/2019 10:58 PM Age: 68 years old Clinical indication: Nausea; Abdominal pain; Flank; Right; Other: Hemoptysis; Chest pain; Type not specified TECHNIQUE: Imaging protocol: Computed tomographic angiography of the chest without and with intravenous contrast. 3D rendering: MIP and/or 3D reconstructed images were created by the technologist. Radiation optimization: All CT scans at this facility use at least one of these dose optimization techniques: automated exposure control; mA and/or kV adjustment per patient size (includes targeted exams where dose is matched to clinical indication); or iterative reconstruction. Contrast material: OMNI 350; Contrast volume: 95 ml; Contrast route: IV; COMPARISON: CT chest w con* [id number] 07/05/2019 6:01 PM RADIATION DOSE METRICS: Total DLP: 3063.19 mGy-cm FINDINGS: Pulmonary arteries: Overall exam quality is good for evaluating the pulmonary arteries. There are no intraluminal filling defects to indicate pulmonary embolism. Aorta: Unremarkable. No aortic aneurysm. No aortic dissection. Lungs: Multiple bilateral pulmonary masses over are all are slightly decreased since 07/05/2019. The largest left upper lobe mass currently measures 6.7 x 5.9 cm and previously measured 7.2 x 5.6 cm. A mass in the right lower lobe posterior basal segment currently measures 4.1 x 2.7 cm and previously measured 3.7 x 2.6 cm. Pleural space: The large left pleural effusion is unchanged. Heart: Unremarkable. No cardiomegaly. No pericardial effusion. Lymph nodes: Persisting central mediastinal and hilar adenopathy. Nodes measure up to 2.5 cm in the left hilum. A subcarinal node measures 2.9 cm. Bones/joints: Chronic thoracic spinal ankylosis. Scattered lytic bone metastasis. For example mass in the left pedicle of T9. There is also mass in the right scapula . Scattered additional masses elsewhere in the skeleton. Soft tissues: Unremarkable. Other findings: [id number] generalized pulmonary fibrosis. IMPRESSION: 1. Overall slightly decreased size of multiple bilateral pulmonary metastasis. 2. Unchanged large left pleural effusion. 3. Unchanged mediastinal adenopathy. 4. Unchanged lytic bone metastasis PROCEDURE INFORMATION: Exam: CT Abdomen And Pelvis With Contrast Exam date and time: 07/16/2019 10:58 PM Age: 68 years old Clinical indication: Nausea; Abdominal pain; Flank; Right; Other: Hemoptysis; Chest pain; Type not specified TECHNIQUE: Imaging protocol: Computed tomography of the abdomen and pelvis with intravenous contrast. Radiation optimization: All CT scans at this facility use at least one of these dose optimization techniques: automated exposure control; mA and/or kV adjustment per patient size (includes targeted exams where dose is matched to clinical indication); or iterative reconstruction. Contrast material: OMNI 350; Contrast volume: 95 ml; Contrast route: IV; COMPARISON: CT chest w con* [id number] 07/05/2019 6:01 PM RADIATION DOSE METRICS: Total DLP: 3063.19 mGy-cm FINDINGS: Liver: Scattered relatively small liver metastasis measure up to 2 cm. These were seen on the prior chest CT and are approximately the same size. Gallbladder and bile ducts: Normal. No calcified stones. No ductal dilation. Pancreas: Normal. No ductal dilation. Spleen: The spleen remains enlarged up to 18.7 cm but enhances normally. Incidental left upper quadrant splenule. Adrenals: Bilateral adrenal nodules are indeterminate cause and measure up to 1.8 cm on the right. Kidneys and ureters: Normal. No hydronephrosis. Stomach and bowel: Scattered distal colonic diverticula are not inflamed. Appendix: No evidence of appendicitis. Intraperitoneal space: Unremarkable. No free air. No significant fluid collection. Vasculature: Unremarkable. No abdominal aortic aneurysm. Lymph nodes: One mildly enlarged right inguinal lymph node Bladder: The urinary bladder is decompressed by catheter. Reproductive: Unremarkable as visualized. Bones/joints: 2 cm lytic mass in the right portion of the L2 vertebral body is associated with a mild pathologic fracture and minimal loss in height. No retropulsion. Scattered small masses in the sacrum and iliac bones as well as lumbar spine. Soft tissues: Unremarkable. Other findings: Several small masses are noted in both proximal femurs, greater on the right. CT/CT angio chest w abd pel wo/w IMPRESSION: 1. Liver metastasis 2. Scattered lytic bone metastasis including a mild L2 pathologic fracture. No retropulsion. 3. Bilateral small indeterminate adrenal masses. 4. Splenomegaly is unchanged. Radiation Dose CTDIVOL = (mGy): DLP = 3063.19~3063.19 (mGy-cm)
[2019-07-16] MEDS: iohexol 350 mg/mL 100 mL Btl IV (23:01)
[2019-07-16 23:07] LABS: Lactic Sepsis W/Reflex 1.3 mmol/L (0.5-2.2)
[2019-07-16 23:10] LABS: Bacteria Urine 1+; Bilirubin Urine Neg (NEGATIVE); Blood Urine 3+ (Negative); Glucose Urine UA Norm (Normal); Ketones Urine Negative (Negative); Leukocyte Esterase Urine 1+ (Negative); Nitrate Urine Negative (Negative); Protein Urine Neg (Negative); RBC Urine 0-4 /hpf (0-2); Squamous Epithelial Cell Urine 0-4 (0-5); Urine Appearance SL Hazy (CLEAR); Urine Color Yellow (Yellow); Urobilinogen Urine Norm (Negative); WBC Urine 15-25 /hpf (0-5); pH Urine 5 (5-7)
[2019-07-16 23:10] LABS: Alanine Aminotransferase 7 U/L (0-41); Albumin Level 3.7 g/dL (3.5-5.2); Alkaline Phosphatase 75 IU/L (40-130); Anion Gap 18.8 (5-19); Aspartate Amino Transferase 20 U/L (0-40); Blood Urea Nitrogen 17 mg/dL (8-23); Calcium 9.6 mg/dL (8.5-10.5); Carbon Dioxide 24 mmol/L (22-29); Chloride 95 mmol/L (98-107); Globulin 3.2 g/dL (1.3-4.6); Glomerular Filtration Rate 133.2 mL/min (90-130); Glucose 108 mg/dL (65-115); Lipase 34 U/L (13-60); Osmolality Calculated 275 mOsm/kg (285-295); Potassium 3.8 mmol/L (3.5-5.1); Sodium 134 mmol/L (136-145); Total Bilirubin 0.5 mg/dL (0.15-1.2); Total Protein 6.9 g/dL (6.6-8.7)
--- NOTE | 2019-07-16 23:12 | ECG_ITS ---
Measurements Intervals [place] Rate: 97 P: 6 NV: 124 QRS: 11 QRSD: 93 T: 42 QT: 359 QTc: 458 SINUS RHYTHM Compared to ECG 10/17/2015 05:27:50 No significant changes Electronically Signed On 07-17-2019 22:04:17 CDT by Cordelia Painting M.D. [id number]
[2019-07-16 23:37] LABS: Troponin(5th) Baseline 33 ng/mL (0-15)
[2019-07-16 23:56] VITALS: BP 118/69; PULSE 97; RESP 14; O2SAT 95
[2019-07-17] VITALS (20 sets, daily range): BP systolic 107–136; BP diastolic 64–81; PULSE 64–100; RESP 14–20; TEMP 36.1–36.9; O2SAT 93–98
[2019-07-17] MEDS: HYDROmorphone 1 mg/mL INJ 1 mL 0.5 MG IVP (00:06)
[2019-07-17] MEDS: levofloxacin-dextrose 5 % 750 MG/150 ML PREMIX 150 MG IV (00:08)
--- NOTE | 2019-07-17 00:41 | P.HP_ITS ---
Providers/Chief Complaint Primary Care Provider: Casa Zhu MD Chief Complaint: RIGHT FLANK PAIN History of Present Illness Ramon Rouse is a 68 year old male who has been diagnosed with lung cancer recently coming in with chief complaint of lower back pain. Patient is stating that he was diagnosed with lung cancer with metastases last by his PCP, there is no biopsy driven diagnosis yet, he has not established care with oncologist, he was supposed to follow-up with Dr. Zhu in the morning for this purpose but unfortunately his oxycodone was not helping him with his back pain, he was seen in the ER yesterday for urinary retention, Ha catheter was placed and MRI was obtained which showed multiple bony metastases. Today CT abdomen is revealing fracture of L2 with lytic bony lesions, liver metastases, splenomeg mekhi, psoas muscle involvement. Patient has been experiencing hemoptysis, he has an appointment with Dr. Motta in future, he brings up 1 teaspoon of blood while coughing. He is able to ambulate without much assistance, no bowel incontinence or constipation, Ha catheter draining concentrated urine. Patient did not want to stay in the hospital for pain management. I called his to update her regarding his level of pain and multiple bony metastases and possibility of seeing an oncologist in the morning. They both agreed to stay overnight. Diagnostics in the ER revealed normal hemodynamics, normal hemoglobin, CT abdomen revealed pathological fracture and multiple bony or soft tissue metastases Urine analysis revealed positive leukocyte esterase but patient is not complaining of any symptoms of UTI, no hydronephrosis seen on CT abdomen, creatinine is normal, Review of Systems Const: Reports: body aches, change in appetite, fatigue, malaise and change in sleep pattern; Denies: fever(s) or chills Eyes: Denies: change in vision ENMT: Denies: throat pain Card: Denies: chest pain Resp: Denies: dyspnea GI: Denies: abdominal pain : Denies: flank pain, difficulty urinating or dysuria Musc: Reports: back pain, extremity pain, joint pain, joint stiffness and limi amada range of motion Skin/Breast: Denies: rash or pruritus Neuro: Reports: headache(s); Denies: weakness in extremities, lack of coordination, dizziness or Slurred spe ech present Psych: Reports: anxiety Endo: Denies: polyuria or hot flashes Andreas/Lymph: Denies: easy bruising All/Imm: Denies: urticaria Medications/Allergies Home Medications Medication Instructions Recorded Confirmed Last Taken Type atenolol 25 mg tablet 25 mg PO DAILY tab 03/01/19 07/16/19 07/16/19 History gabapentin 300 mg capsule 300 mg PO TID 03/01/19 07/16/19 07/16/19 History pravastatin 40 mg tablet 40 mg PO DAILY tab 03/01/19 07/16/19 07/15/19 History clopidogrel 75 mg tablet 75 mg PO DAILY tab 04/02/19 07/16/19 07/15/19 History meloxicam 15 mg tablet 15 mg PO DAILY tab 04/02/19 07/16/19 07/16/19 History clonazepam 0.5 mg tablet 0.5 mg PO BID PRN #60 tab 06/25/19 07/16/19 07/16/19 Rx prazosin 1 mg capsule 1 mg PO BID #180 cap 06/25/19 07/16/19 07/16/19 Rx sertraline 100 mg tablet 200 mg PO Q24H #180 tab 06/25/19 07/16/19 07/16/19 Rx trazodone 100 mg tablet 100 mg PO .HS #90 tab 06/25/19 07/16/19 07/15/19 Rx oxycodone 5 mg PO Q4H PRN #30 tab 07/15/19 07/16/19 07/16/19 Rx Ranitidine 300 mg PO DAILY 07/16/19 07/16/19 07/16/19 History calcitonin (salmon) 1 spray INTRANASAL DAILY 07/16/19 07/16/19 07/16/19 History Allergies Allergy/AdvReac Type Severity Reaction Status Date / Time gemfibrozil Allergy RASH Verified 07/10/19 12:05 tramadol Allergy ADR-Halluci Verified 07/15/19 12:09 nating PFSH Acute PFSH: Medical History (Updated 07/17/19 @ 01:41 by Royal Gay MD) ASHD (arteriosclerotic heart disease) Hyperlipidemia Melanoma Metastatic cancer Lung Post-traumatic stress disorder, chronic Rotator cuff arthropathy Surgical History History of carpal tunnel surgery Stented coronary artery Family History Father CAD (coronary artery disease) Family history of premature coronary artery disease Sister CAD (coronary artery disease) Diabetes Brother CAD (coronary artery disease) Mother Cancer Social History Smoking and tobacco status: never smoked Alcohol intake: current Alcohol intake frequency: holidays/special occasions only Alcohol type: beer Lives independently: Yes Household members: spouse Marital status: Number of children: 1 Number of grandchildren: 4 Current occupational status: retired History of recent travel: No Current gender identity: Male Vitals/I&O/Wt Last Vital Signs Pulse 99 07/17/19 00:10 Resp 14 07/17/19 00:10 BP 107/74 07/17/19 00:10 Pulse Ox 95 07/17/19 00:10 Weight last 48 hrs Weight 107.955 kg Physical Exam Narrative: EXAM NARRATIVE: Head to toe examination Patient lying comfortable in his bed Seems to be upset about his medical conditions Not complaining of active back pain EOMI, PERRLA Awake alert oriented x3, GCS 15, neurologically nonfocal exam Ha catheter draining concentrated urine, few sediment seen in the urine bag, no active signs of UTI S1, S2 sinus tachycardia heart rate 100 No signs of heart failure Abdomen soft, nontender, nondistended, splenomegaly is nontender Skin does not show any sign of ischemia gangrene or ulcer Mood seems to be depressed No active hemoptysis Leg raise test negative bilaterally Data : 07/16/19 22:20 07/16/19 22:20 Micro: Microbiology 07/16/19 22:21 Blood Culture - Preliminary Blood SPECIMEN COLLECTED 07/16/19 22:20 Blood Culture - Preliminary Blood SPECIMEN COLLECTED A&P Assessment and plan (1) Intractable low back pain: Status: Acute (2) Metastatic primary lung cancer: Status: Acute Qualifiers: Laterality: unspecified laterality Qualified Code(s): C34.90 - Malignant neoplasm of unspecified part of unspecified bronchus or lung (3) Pleural effusion: Status: Acute Additional A&P Information Back pain secondary to bony metastases Recently got diagnosed with multiple metastases on imaging, primary source likely is pulmonary, he also has history of melanoma He has not established care with oncologist yet, biopsy has not been obtained yet He has pathological fracture of L2, lytic lesion evident on CT scan I would control his pain with long-acting morphine 30 mg twice a day and Dilaudid for breakthrough pain control in between Bowel regimen with dianna Trevino Kindly update Dr. Zhu about his hospitalization, patient is agreeable to see oncologist during this stay to step up the process, he will need long-term pain management, he does not want any aggressive intervention, agreeable to discuss palliative options with oncologist but would like to go through Dr. Zhu first Hemoptysis Patient able to protect airway, hemoglobin stable, Has appointment with Dr. 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
[2019-07-17] MEDS: morphine 4 mg/mL SDV 1 mL IVP ×2 (02:56→07:36)
[2019-07-17] MEDS: sertraline 100 mg Tablet 200 MG PO (03:07)
[2019-07-17] MEDS: sodium chloride 0.9% 1,000 ML 100 ML IV ×2 (03:07→20:10)
--- NOTE | 2019-07-17 06:34 | PC.NURSE ---
Patient rested well through the night. Patient reports his pain is much better.
[2019-07-17] MEDS: sennosides-docusate Tablet 1 TAB PO ×2 (08:53→17:36)
[2019-07-17] MEDS: atorvastatin 40 mg Tablet 20 MG PO (08:53)
[2019-07-17] MEDS: prazosin 1 mg Capsule PO ×2 (08:53→17:36)
[2019-07-17] MEDS: clopidogrel 75 mg Tablet PO (08:53)
[2019-07-17] MEDS: morphine ER (12 HR) 30 mg tablet PO ×2 (08:53→17:36)
[2019-07-17] MEDS: atenolol 50 mg Tablet 25 MG PO ×2 (08:54→08:56)
--- NOTE | 2019-07-17 09:27 | CT_ITS ---
WS: [id number] CT HEAD NONCONTRAST HISTORY: metastatic cancer, unknown primary TECHNIQUE: Contiguous axial imaging performed through the brain in 2.5 mm imaging. Bone and soft tiss ue windows. Sagittal and coronal reformats reviewed. All CT scans at [facility] use at le ast one of these dose optimization techniques: automated exposure control; mA and/or kV adjustment pe r patient size (includes targeted exams where dose is matched to clinical indication); or iterative r econstruction. DLP: 1247.61 mGy.cm COMPARISON: None available. Numerous intracranial hyperdense brain metastases. The largest in the centrum semiovale ovale on the RIGHT in the posterior frontal lobe measures 2.0 x 1.8 x 1.9 cm. There are a few cystic areas or area s of necrosis centrally. Mass extends to the interhemispheric falx and slightly crosses the midline. There are additional much smaller areas of increased density but predominant white and subcortical wh ite matter. Metastatic lesions are supratentorial. No atrophy or prior infarcts or herniation. Ventricles: Normal size with no hydrocephalus. Paranasal sinuses: As visualized are clear. Mastoid air cells: Well pneumatized. Calvarium and scalp: No fracture. There is a lytic lesion involving the LEFT temporal bone measures 8 mm. No intraocular metastasis. CT/CT head wo con* [id number] IMPRESSION: 1. Hyperdense cerebral metastasis. The largest in the RIGHT posterior frontal lobe towards the vertex measures 2.0 x 1.8 x 1.9 cm. Consistent with metastatic melanoma. There are additional smaller scattered subcortical white matter meta stases. 2. Indeterminate lytic area in the LEFT temporal bone for metastatic site.
[2019-07-17] MEDS: cefTRIAXone 1,000 MG in sodium chloride 0.9% (plus) 50 ML 100 MG IV (10:14)
--- NOTE | 2019-07-17 11:48 | PC.CHAP ---
Pastoral Care Encounter/Spiritual Assessment Type of Contact [] Declined client support associate visit [] Patient/Family/Request visit [] Outpatient visit [] Follow-up visit [] Physician referral [] Code/Alert [X] Routine visit [] Staff referral [] Actively dying [] Patient sleeping [] Family support [] [] Out of room [] Palliative care [] [X] Receiving care in room [] Pre-surgical visit [] Trauma [] Long length of stay [] ICU visit [] Other: Relational/Emotional Strength [] Patient feels connected with others/family/visitors/staff [X] Distress [] Loneliness/isolation [] Abandonment Spirituality of Patient [] Person of Anahi [] Attends Taoism of their Anahi [] Believes in Prayer [] Reads Bible or Scientologist materials [] There are Spiritual issues to be addressed Graphic Artist Interventions [] Prayer [] Active listening [] Non-anxious presence [] Spiritual/emotional support [] Crisis/trauma care [] Spiritual counseling [] Bereavement support [] Provided bereavement packet [] Provided Bible/devotional materials [] Provided toy/stuffed animal, coloring book to patient or family member [] Provided Communion [] Anointing/[place] [] Salvation [] Completed spiritual assessment [X] Other: NO PRAYER Impact on Illness or Injury [] Angry [X] Fearful [X] Anxious [] Often cries [] Exhaustion [] Unable to work [] Unable to attend rastafarian [] Unable to walk/stand [] Unable to read [] Unable to drive [] Unable to eat/drink [] Unable to sleep [] Unable to be with family [] Patient intubated [] Other: Summary RIGHT FLANK PAIN NHEEDS DYISIES NOT AT THIS TIME, GOING HOME TO FAMILY Time spent with patient 10 mins
[2019-07-17] MEDS: HYDROmorphone 1 mg/mL INJ 1 mL 2 MG IVP ×3 (12:00→20:06)
--- NOTE | 2019-07-17 12:32 | P.PN_ITS ---
Subjective Subjective: Interval history: The following discussion was made with patient, and patient's daughter Eloina Lamb over the phone in patient's presence Patient states that he presents to [facility] as he feels weak, fatigued, tired and has severe back pain Patient has a history of melanoma on his back, was treated with surgical resection, no history of chemo, no history of immunotherapy, no history of prostate cancer, but has had acute urinary tension for the last week, requiring Ha catheter placement, did smoke for 6 months many years ago, no history of hematuria, no history of renal cancer, no history of lung cancer, no history of bloody or black stools I advised all parties, that patient has radiographic evidence of diffusely metastatic disease, in his lungs, liver, lumbar spine, lymphadenopathy, the primary is unknown, but possibilities include melanoma, prostate cancer, lung cancer etc. I discussed options, including biopsy, treatment for cancer, hospice, comfort care, patient did voice to me that he does not want treatment for his cancer I advised all parties that although there is radiographic evidence of cancer, we do not know for certain until we do a biopsy, nor do we know the type of cancer, different cancers respond differently to treatment, such as if it is melanoma, there is new immunotherapy that is targeted towards melanoma, and he might respond well Patient's family will think about this, patient will think about this For now, given his nausea, vomiting we will order a CT of the head to rule out intracranial metastasis Will control pain with morphine, Ativan for anxiety, MiraLAX for constipation Patient is agreeable for Dr. Juarez to see him Vitals/I&O/Wt Last Vital Signs Temp 98.2 F 07/17/19 11:00 Pulse 64 07/17/19 11:00 Resp 16 07/17/19 12:00 BP 130/68 07/17/19 11:00 Pulse Ox 95 07/17/19 11:00 07/16/19 07/17/19 07/17/19 22:59 06:59 14:59 Intake Total 720 / 720 Output Total 650 / 650 425 / 425 Balance -650 / -650 295 / 295 Weight last 48 hrs Weight 107.955 kg Physical Exam Const: COMMON NORMALS: no acute distress and patient oriented x3 HENMT: COMMON NORMALS: normocephalic HEAD & SCALP: normocephalic Neck/C-Spine: COMMON NORMALS: no JVD Resp: COMMON NORMALS: normal respiratory effort, No retractions, No use of accessory muscles and clear to auscultation bilaterally AUSCULTATION: clear to auscultation bilaterally Cardio: COMMON NORMALS: no JVD, regular rate, regular rhythm, S1 normal heart sound present and S2 normal heart sound present RATE: regular rate RHYTHM: regular rhythm HEART SOUNDS: S1 normal heart sound present and S2 normal heart sound present GI: COMMON NORMALS: Normal to inspection, nondistended, normoactive bowel sounds present, Soft to palpation, non-tender, No hepatosplenomegaly present, no masses and no bruits PALPATION: Yes Soft to palpation and Yes No hepatosplenomegaly present Extremity: COMMON NORMALS: capillary refill normal, no clubbing, cyanosis or edema, no calf tenderness and no pedal edema Neuro: COMMON NORMALS: patient oriented x3 Psych: COMMON NORMALS: mental status grossly normal Data : 07/16/19 22:20 07/16/19 22:20 Micro: Microbiology 07/16/19 22:21 Blood Culture - Preliminary Blood SPECIMEN COLLECTED 07/16/19 22:20 Blood Culture - Preliminary Blood SPECIMEN COLLECTED A&P Assessment and plan (1) Metastatic malignant neoplasm of unknown primary site: -Lungs: Multiple bilateral pulmonary masses over are all are slightly decreased since 07/05/2019. The largest left upper lobe mass currently measures 6.7 x 5.9 cm and previously measured 7.2 x 5.6 cm. A mass in the right lower lobe posterior basal segment currently measures 4.1 x 2.7 cm and previously measured 3.7 x 2.6 cm. -Pleural space: The large left pleural effusion is unchanged. -Lymph nodes: Persisting central mediastinal and hilar adenopathy. Nodes measure up to 2.5 cm in the left hilum. A subcarinal node measures 2.9 cm. -Bones/joints: Chronic thoracic spinal ankylosis. Scattered lytic bone metastasis. For example mass in the left pedicle of T9. There is also mass in the right scapula . Scattered additional masses elsewhere in the skeleton. -Liver: Scattered relatively small liver metastasis measure up to 2 cm. These were seen on the prior chest CT and are approximately the same size. -Adrenals: Bilateral adrenal nodules are indeterminate cause and measure up to 1.8 cm on the right. -Lymph nodes: One mildly enlarged right inguinal lymph node -Bones/joints: 2 cm lytic mass in the right portion of the L2 vertebral body is associated with a mild pathologic fracture and minimal loss in height. No retropulsion. Scattered small masses in the sacrum and iliac bones as well as lumbar spine. -Other findings: Several small masses are noted in both proximal femurs, greater on the right. -MRI lumbar spine: 1. Metastatic disease at multiple levels. The largest lesion is within the right half of the L2 vertebra with extraosseous extension into the right psoas muscle. 2. Metastatic lesion within the superior left L1 vertebra with minimal extension into the ventral epidural space. There also large lesions in the left transverse process of T12 and in the right pedicle and transverse process of T11. These lesions were not included on axial images. 3. Smaller lesions are present within the vertebral body at L4 and the right pedicle of L5. -Unknown primary site, possibly melanoma, prostate cancer, lung cancer, etc. -Patient did have a left thoracocentesis by Dr. Motta, I spoke to Dr. Motta, the pathology is pending, but in-house pleural cytology was negative for malignancy -Family and patient is considering biopsy and or intervention and/or hospice, but patient at one point told me he did not want treatment for his cancer Plan: -I have consulted Dr. Juarez -Ordered PSA -Ordered CT of the head to evaluate for intracranial metastasis -Morphine 4 mg IV push every 4 hours for pain as needed -Patient uses morphine 30 mg p.o. twice daily -Zofran for nausea -MiraLAX and senna for constipation -Continue IV hydration -Ha catheter in place for acute urinary retention -Awaiting on patient and family's further decision about interventions Status: Acute (2) Intractable low back pain: Status: Acute (3) Pleural effusion: Status: Acute (4) Acute UTI: Status: Acute Additional A&P Information Hemoptysis Patient able to protect airway, hemoglobin stable, Has appointment with Dr. 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
[2019-07-17 13:32] LABS: Prostate Specific Antigen 10.47 ng/mL (0-4)
[2019-07-17] MEDS: polyethylene glycol 3350 Pkt 17 gm PO (15:47)
--- NOTE | 2019-07-17 17:42 | PM.CONSULT ---
Providers/Reason For Consult Attending Physician: Dilshad Mccray MD Primary Care Provider: Casa Zhu MD Meds/Allergies Home Medications and Allergies Home Medications Medication Instructions Recorded Confirmed Last Taken Type atenolol 25 mg tablet 25 mg PO DAILY tab 03/01/19 07/16/19 07/16/19 History gabapentin 300 mg capsule 300 mg PO TID 03/01/19 07/16/19 07/16/19 History pravastatin 40 mg tablet 40 mg PO DAILY tab 03/01/19 07/16/19 07/15/19 History clopidogrel 75 mg tablet 75 mg PO DAILY tab 04/02/19 07/16/19 07/15/19 History meloxicam 15 mg tablet 15 mg PO DAILY tab 04/02/19 07/16/19 07/16/19 History clonazepam 0.5 mg tablet 0.5 mg PO BID PRN #60 tab 06/25/19 07/16/19 07/16/19 Rx prazosin 1 mg capsule 1 mg PO BID #180 cap 06/25/19 07/16/19 07/16/19 Rx sertraline 100 mg tablet 200 mg PO Q24H #180 tab 06/25/19 07/16/19 07/16/19 Rx trazodone 100 mg tablet 100 mg PO .HS #90 tab 06/25/19 07/16/19 07/15/19 Rx oxycodone 5 mg PO Q4H PRN #30 tab 07/15/19 07/16/19 07/16/19 Rx Ranitidine 300 mg PO DAILY 07/16/19 07/16/19 07/16/19 History calcitonin (salmon) 1 spray INTRANASAL DAILY 07/16/19 07/16/19 07/16/19 History Allergies Allergy/AdvReac Type Severity Reaction Status Date / Time gemfibrozil Allergy RASH Verified 07/10/19 12:05 tramadol Allergy ADR-Halluci Verified 07/15/19 12:09 luz Current Medications Current Medications Generic Name Dose Route Start Last Admin Trade Name Freq PRN Reason Stop Dose Admin Atenolol 25 mg 07/17/19 09:07/17/19 08:56 Tenormin PO 25 mg DAILY MONA Administration Atorvastatin Calcium 20 mg 07/17/19 09:00 07/17/19 08:53 Lipitor PO 20 mg DAILY MONA Administration Clopidogrel Bisulfate 75 mg 07/17/19 09:00 07/17/19 08:53 Plavix PO 75 mg DAILY MONA Administration Hydromorphone HCl 2 mg 07/17/19 02:17 07/17/19 17:34 Dilaudid Inj IVP 2 mg Q2H PRN Administration mod pain Sodium Chloride 1,000 mls @ 100 mls/hr 07/17/19 02:17 07/17/19 03:07 Sodium Chloride 0.9% IV 100 mls/hr .Q10H MONA Administration Ceftriaxone Sodium 1,000 mg/ 50 mls @ 100 mls/hr 07/17/19 10:00 07/17/19 10:14 Sodium Chloride IV 100 mls/hr Q24H MONA Administration Protocol Morphine Sulfate 4 mg 07/17/19 02:17 07/17/19 07:36 Morphine IVP 4 mg Q4H PRN Administration SEVERE PAIN Morphine Sulfate 30 mg 07/17/19 09:00 07/17/19 17:36 Ms Contin PO 30 mg BID MONA Administration Polyethylene Glycol 17 gm 07/17/19 12:45 07/17/19 15:47 Miralax PO 17 gm DAILY MONA Administration Prazosin HCl 1 mg 07/17/19 09:00 07/17/19 17:36 Minipress PO 1 mg BID MONA Administration Senna/Docusate Sodium 1 tab 07/17/19 09:00 07/17/19 17:36 Senna-S PO 1 tab BID MNOA Administration Sertraline HCl 200 mg 07/17/19 02:17 07/17/19 03:07 Zoloft PO 200 mg Q24H MONA Administration PFSH Acute PFSH: Medical History (Updated 07/17/19 @ 12:38 by Dilshad Mccray MD) ASHD (arteriosclerotic heart disease) Hyperlipidemia Melanoma Metastatic cancer Lung Post-traumatic stress disorder, chronic Rotator cuff arthropathy Surgical History History of carpal tunnel surgery Stented coronary artery Family History Father CAD (coronary artery disease) Family history of premature coronary artery disease Sister CAD (coronary artery disease) Diabetes Brother CAD (coronary artery disease) Mother Cancer Social History Smoking and tobacco status: never smoked Alcohol intake: current Alcohol intake frequency: holidays/special occasions only Alcohol type: beer Lives independently: Yes Household members: spouse Marital status: Number of children: 1 Number of grandchildren: 4 Current occupational status: retired History of recent travel: No Current gender identity: Male Vitals/I&O/Wt Last Vital Signs Temp 96.9 F L 07/17/19 15:17 Pulse 64 07/17/19 15:17 Resp 18 07/17/19 17:36 BP 128/64 07/17/19 15:17 Pulse Ox 98 07/17/19 15:17 07/17/19 07/17/19 07/17/19 06:59 14:59 22:59 Intake Total 1720 / 1720 200 / 1920 Output Total 650 / 650 425 / 425 150 / 575 Balance -650 / -650 1295 / 1295 50 / 1345 Weight last 48 hrs Weight 107.955 kg Data Micro: Micro: Microbiology 07/16/19 22:21 Blood Culture - Pr eliminary Blood SPECIMEN COLLEC CAT 07/16/19 22:20 Blood Culture - Pr eliminary Blood SPECIMEN COLLE CAT Coding Level of Care Code 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
--- NOTE | 2019-07-17 18:00 | P.CONIM_ITS ---
Providers/Reason For Consult Consulting Physican/Specialty*: Medical oncology Reason for Consult*: Metastatic malignancy Attending Physician: Dilshad Mccray MD Primary Care Provider: Casa Zhu MD History of Present Illness History of Present Illness Ramon Rouse is a 68 [address] old man with CT evidence of widespread metastatic disease, suspected to be metastatic melanoma. He has hypertension, hyperlipidemia, and known coronary artery disease with previous angioplasty/stent placement. In August 2017 he underwent excision of a melanoma from the right side of the back. The details regarding that procedure, including the pathology report, are not available at this time. However, he received no further treatment. He has had chronic back pain which had worsened significantly over the past several months. He had seen Dr. Zhu and was found on chest CT on 07/05/2019 to have multiple lung nodules bilaterally along with moderate to large left pleural effusion, consistent with metastatic disease. The dominant mass was in the superior segment of the left lower lobe measuring up to 6.6 cm. A second left lower lobe mass measured 4.2 cm. The dominant lesion in the right lung was in the lower lobe measuring 2.7 cm. There were markedly enlarged left hilar lymph nodes as well as subcarinal and periesophageal adenopathy. The spleen was enlarged, measuring 19.5 cm. Lytic lesions were noted within the T7 and T8 vertebral bodies and a larger lytic lesion was noted in the transverse process of T9. There were additional lytic lesions noted in the left 12th rib and in the right scapula. CT of the lumbar spine also showed multiple lytic lesions consistent with metastatic disease. He was seen by Dr. Motta on 07/10/2019 and he underwent left thoracentesis the following day. The initial report on the pleural fluid cytology showed no malignant cells. On 07/15/2019 he presented to the emergency room with worsening back pain and urinary retention. MRI of the lumbar spine on 07/15/2019 showed metastatic disease at multiple levels. The most significant involve the right half of the L2 vertebral body with extraosseous extension into the right psoas muscle. A metastatic lesion within the superior left L1 vertebral body showed minimal extension into the ventral epidural space. Large lesions were also noted in the left transverse process of T12 and in the right pedicle and transverse process of T11. The following day he returned to the emergency room with complaints of new right flank pain. At that time he also was having hemoptysis. CT scans of the chest, abdomen, and pelvis again showed multiple bilateral pulmonary metastases with large left pleural effusion, mediastinal adenopathy, and lytic bone lesions. Also noted were scattered relatively small liver metastases measuring up to 2 cm and unchanged splenomegaly. Small bilateral adrenal nodules were indeterminate. There was a mild pathologic fracture noted at L2. He was then admitted to the hospital for further management. Noncontrast head CT today shows evidence of hyperdense cerebral metastases, the largest in the right posterior frontal lobe towards the vertex measuring 2.0 x 1.8 x 1.9 cm. There are additional smaller scattered subcortical white matter test disease noted. The appearance is consistent with metastatic melanoma. At this point he continues to have pain in the lower back, severe enough that he has become essentially bed confined. His appetite has been poor. He thinks he has lost weight. He has not had fever. He has been having significant night sweating. He does not have that much cough, but he has been coughing up clots of dark red blood. He does not complain of shortness of breath or chest pain. He has been having nausea and constipation. He has developed urinary retention, requiring placement of indwelling Ha catheter. He does not complain of headache, and he has no focal neurologic symptoms. Review of Systems Const: Reports: fatigue and night sweats; Denies: fever(s) or other (no hot flashes) Eyes: Denies: change in vision ENMT: Denies: throat pain, odynophagia, hoarseness, oral sores, change in hearing or tinnitus Card: Denies: chest pain, palpitations, swelling of feet/ankles, lightheadedness, orthopnea or leg pain with exertion Resp: Reports: productive cough and hemoptysis; Denies: dyspnea, wheezing or pain on inspiration GI: Reports: nausea and constipation; Denies: abdominal pain, vomiting, dysphagia, heartburn, diarrhea, hematochezia or melena : Reports: difficulty urinating; Denies: dysuria, urinary frequency, urinary urgency, urinary hesitancy, urinary incontinence or hematuria Musc: Reports: back pain; Denies: neck pain, joint pain, joint stiffness or muscle cramps Skin/Breast: Denies: rash or new lesions Neuro: Reports: dizziness; Denies: headache(s), numbness in extremities or sensory changes Psych: Reports: anxiety and depression Anrdeas/Lymph: Denies: easy bruising Meds/Allergies Home Medications and Allergies Home Medications Medication Instructions Recorded Confirmed Last Taken Type atenolol 25 mg tablet 25 mg PO DAILY tab 03/01/19 07/16/19 07/16/19 History gabapentin 300 mg capsule 300 mg PO TID 03/01/19 07/16/19 07/16/19 History pravastatin 40 mg tablet 40 mg PO DAILY tab 03/01/19 07/16/19 07/15/19 History clopidogrel 75 mg tablet 75 mg PO DAILY tab 04/02/19 07/16/19 07/15/19 History meloxicam 15 mg tablet 15 mg PO DAILY tab 04/02/19 07/16/19 07/16/19 History clonazepam 0.5 mg tablet 0.5 mg PO BID PRN #60 tab 06/25/19 07/16/19 07/16/19 Rx prazosin 1 mg capsule 1 mg PO BID #180 cap 06/25/19 07/16/19 07/16/19 Rx sertraline 100 mg tablet 200 mg PO Q24H #180 tab 06/25/19 07/16/19 07/16/19 Rx trazodone 100 mg tablet 100 mg PO .HS #90 tab 06/25/19 07/16/19 07/15/19 Rx oxycodone 5 mg PO Q4H PRN #30 tab 07/15/19 07/16/19 07/16/19 Rx Ranitidine 300 mg PO DAILY 07/16/19 07/16/19 07/16/19 History calcitonin (salmon) 1 spray INTRANASAL DAILY 07/16/19 07/16/19 07/16/19 History Allergies Allergy/AdvReac Type Severity Reaction Status Date / Time gemfibrozil Allergy RASH Verified 07/10/19 12:05 tramadol Allergy ADR-Halluci Verified 07/15/19 12:09 luz Current Medications Current Medications Generic Name Dose Route Start Last Admin Trade Name Freq PRN Reason Stop Dose Admin Atenolol 25 mg 07/17/19 09:00 07/17/19 08:56 Tenormin PO 25 mg DAILY MONA Administration Atorvastatin Calcium 20 mg 07/17/19 09:00 07/17/19 08:53 Lipitor PO 20 mg DAILY MONA Administration Clopidogrel Bisulfate 75 mg 07/17/19 09:00 07/17/19 08:53 Plavix PO 75 mg DAILY MONA Administration Hydromorphone HCl 2 mg 07/17/19 02:17 07/17/19 17:34 Dilaudid Inj IVP 2 mg Q2H PRN Administration mod pain Sodium Chloride 1,000 mls @ 100 mls/hr 07/17/19 02:17 07/17/19 03:07 Sodium Chloride 0.9% IV 100 mls/hr .Q10H MONA Administration Ceftriaxone Sodium 1,000 mg/ 50 mls @ 100 mls/hr 07/17/19 10:00 07/17/19 10:14 Sodium Chloride IV 100 mls/hr Q24H MONA Administration Protocol Morphine Sulfate 4 mg 07/17/19 02:17 07/17/19 07:36 Morphine IVP 4 mg Q4H PRN Administration SEVERE PAIN Morphine Sulfate 30 mg 07/17/19 09:00 07/17/19 17:36 Ms Contin PO 30 mg BID MONA Administration Polyethylene Glycol 17 gm 07/17/19 12:45 07/17/19 15:47 Miralax PO 17 gm DAILY MONA Administration Prazosin HCl 1 mg 07/17/19 09:00 07/17/19 17:36 Minipress PO 1 mg BID MONA Administration Senna/Docusate Sodium 1 tab 07/17/19 09:00 07/17/19 17:36 Senna-S PO 1 tab BID MONA Administration Sertraline HCl 200 mg 07/17/19 02:17 07/17/19 03:07 Zoloft PO 200 mg Q24H MONA Administration PFSH Acute PFSH: Medical History (Updated 07/17/19 @ 19:47 by Artemio Juarez MD) ASHD (arteriosclerotic heart disease) Hyperlipidemia Melanoma Metastatic cancer Lung Post-traumatic stress disorder, chronic Rotator cuff arthropathy Surgical History History of carpal tunnel surgery Stented coronary artery Family History Father CAD (coronary artery disease) Family history of premature coronary artery disease Sister CAD (coronary artery disease) Diabetes Brother CAD (coronary artery disease) Mother Cancer Social History Smoking and tobacco status: never smoked Alcohol intake: current Alcohol intake frequency: holidays/special occasions only Alcohol type: beer Lives independently: Yes Household members: spouse Marital status: Number of children: 1 Number of grandchildren: 4 Current occupational status: retired History of recent travel: No Current gender identity: Male Supplemental [facility] Information: He had smoked while he was in the [employer], but he quit by age 16. His mother of breast cancer. Vitals/I&O/Wt Last Vital Signs Temp 96.9 F L 07/17/19 15:17 Pulse 64 07/17/19 15:17 Resp 18 07/17/19 17:36 BP 128/64 07/17/19 15:17 Pulse Ox 98 07/17/19 15:17 07/17/19 07/17/19 07/17/19 06:59 14:59 22:59 Intake Total 1720 / 1720 200 / 1920 Output Total 650 / 650 425 / 425 150 / 575 Balance -650 / -650 1295 / 1295 50 / 1345 Weight last 48 hrs Weight 107.955 kg Physical Exam Const: OTHER: He appears generally weak. He is mildly lethargic, but arousable. HENMT: MOUTH: oral and palatal mucosa not normal THROAT: posterior oropharynx normal Eye: COMMON NORMALS: conjunctivae normal and no scleral icterus CONJUNCTIVA: Yes conjunctivae normal Lymph: LYMPHATIC: no lymphadenopathy noted (No cervical, clavicular, axillary, or inguinal lymphadenopathy) Resp: COMMON NORMALS: clear to auscultation bilaterally AUSCULTATION: clear to auscultation bilaterally OTHER: Lungs sound clear but with diminished breath sounds on the left. Cardio: COMMON NORMALS: regular rate, regular rhythm, No gallops present (Cardio), No murmurs present (Cardio) and No rub (Cardio) RATE: regular rate RHYTHM: regular rhythm GI: COMMON NORMALS: Soft to palpation, non-tender, No hepatosplenomegaly present and no masses PALPATION: Yes Soft to palpation and Yes No hepatosplenomegaly present Extremity: NARRATIVE EXTREMITY EXAM: No edema. Pedal pulses are palpable bilaterally. Neuro: COMMON NORMALS: no focal motor deficits and no sensory deficits noted OTHER: He appears generally weak, but with evidence for focal neurologic deficit. Skin: NARRATIVE SKIN EXAM: No evidence of skin eruption. No suspicious skin lesions noted. Data Micro: Micro: Microbiology 05/25/20 22:21 Blood Culture - Pr eliminary Blood SPECIMEN [facility] CAT 07/16/19 22:20 Blood Culture - Pr eliminary Blood SPECIMEN [facility] A&P Assessment and plan (1) Metastatic malignant neoplasm of unknown primary site: Patient presents with CT evidence of multiple sites of metastatic malignancy including multiple sites of bone involvement as well as involvement in both lungs, liver, lymph nodes, and brain. Overall, the clinical picture is most consistent with metastatic melanoma. I had a discussion with the patient's and [id number] regarding his treatment and prognosis. While there are potentially effective treatment options available for metastatic melanoma, the patient himself has been more inclined to just continue with symptomatic treatment measures, and now with evidence of additional metastatic involvement in the brain, the likelihood of his having a significant overall benefit with cancer directed therapy will be low. Under the circumstances, I would recommend starting dexamethasone, initially at 4 mg 4 times daily, but it would be appropriate otherwise limit his treatment to symptomatic measures with hospice, as his overall prognosis is extremely poor. Status: Acute (2) Intractable low back pain: Status: Acute (3) Acute urinary retention: Status: Acute (4) Post-traumatic stress disorder, chronic: Status: Acute (5) Hyperlipidemia: Status: Acute Qualifiers: Hyperlipidemia type: mixed hyperlipidemia Qualified Code(s): E78.2 - Mixed hyperlipidemia (6) ASHD (arteriosclerotic heart disease): Status: Acute Coding Level of Care Code Acute Credit Charge Authorizer for [facility] Fwd Exam Detailed Diagnoses Metastatic malignant neoplasm of unknown primary site C79.9; C80.1 Intractable low back pain M54.5 Acute urinary retention R33.8 Post-traumatic stress disorder, chronic F43.12 Hyperlipidemia E78.2 Hyperlipidemia type: mixed hyperlipidemia ASHD (arteriosclerotic heart disease) I25.10
[2019-07-17] MEDS: dexamethasone 4 mg Tablet PO (20:06)
[2019-07-18] VITALS (11 sets, daily range): BP systolic 111–133; BP diastolic 69–77; PULSE 66–75; RESP 16–18; TEMP 36.4–37; O2SAT 92–96
[2019-07-18] MEDS: morphine 4 mg/mL SDV 1 mL IVP ×2 (02:51→15:57)
[2019-07-18] MEDS: sertraline 100 mg Tablet 200 MG PO (05:33)
[2019-07-18] MEDS: morphine ER (12 HR) 30 mg tablet PO (05:34)
[2019-07-18] MEDS: sodium chloride 0.9% 1,000 ML 100 ML IV (05:35)
[2019-07-18 05:50] LABS: Eosinophils % 0.2 %; Hematocrit 39.2 % (42.0-52.0); Hemoglobin 12.4 g/dL (11.7-16.6); Lymphocytes # 0.5 10^3/uL (0.8-4.8); Lymphocytes % 10.8 %; Mean Corpuscular HGB Conc 31.6 g/dL (30.0-36.0); Mean Corpuscular Hemoglobin 28.6 pg (28.0-34.0); Mean Corpuscular Volume 90.5 fL (80-94); Mean Platelet Volume 10.1 fL (7.4-10.4); Monocytes # 0.3 10^3/uL (0.2-0.9); Monocytes % 7.6 %; Neutrophils # 3.5 10^3/uL (1.8-7.7); Neutrophils % 80.9 %; Nucleated Red Blood Cells % 0 %; Platelet Count 190 10^3/cmm (130-400); Red Blood Count 4.33 10^6/uL (4.1-5.3); Red Cell Distribution Width 13.4 % (12.1-15.1); White Blood Count 4.4 10^3/uL (4.0-10.0)
[2019-07-18 06:11] LABS: Alanine Aminotransferase 8 U/L (0-41); Albumin Level 3.5 g/dL (3.5-5.2); Alkaline Phosphatase 64 IU/L (40-130); Anion Gap 13.6 (5-19); Aspartate Amino Transferase 16 U/L (0-40); Blood Urea Nitrogen 13 mg/dL (8-23); Calcium 8.8 mg/dL (8.5-10.5); Carbon Dioxide 28 mmol/L (22-29); Chloride 103 mmol/L (98-107); Globulin 2.5 g/dL (1.3-4.6); Glomerular Filtration Rate 133.2 mL/min (90-130); Glucose 127 mg/dL (65-115); Osmolality Calculated 288 mOsm/kg (285-295); Phosphorus 4.2 mg/dL (2.5-4.5); Potassium 4.6 mmol/L (3.5-5.1); Sodium 140 mmol/L (136-145); Total Bilirubin 0.3 mg/dL (0.15-1.2)
[2019-07-18] MEDS: polyethylene glycol 3350 Pkt 17 gm PO (09:00)
[2019-07-18] MEDS: atorvastatin 40 mg Tablet 20 MG PO (09:00)
[2019-07-18] MEDS: sennosides-docusate Tablet 1 TAB PO (09:00)
[2019-07-18] MEDS: dexamethasone 4 mg Tablet PO ×2 (09:00→15:57)
[2019-07-18] MEDS: pantoprazole DR 40 mg Tablet PO (09:00)
[2019-07-18] MEDS: atenolol 50 mg Tablet 25 MG PO (09:00)
--- NOTE | 2019-07-18 10:35 | PC.CHAP ---
Pastoral Care Encounter/Spiritual Assessment Type of Contact [] Declined senior qa analyst visit [] Patient/Family/Request visit [] Outpatient visit [] Follow-up visit [] Physician referral [] Code/Alert [x] Routine visit [] Staff referral [] Actively dying [] Patient sleeping [] Family support [] [] Out of room [] Palliative care [] [] Receiving care in room [] Pre-surgical visit [] Trauma [] Long length of stay [] ICU visit [] Other: Relational/Emotional Strength [] Patient feels connected with others/family/visitors/staff [] Distress [] Loneliness/isolation [] Abandonment Spirituality of Patient [x] Person of Anahi [] Attends Scientology of their Anahi [] Believes in Prayer [] Reads Bible or Yazidi materials [] There are Spiritual issues to be addressed Receiver Stocker Interventions [] Prayer [] Active listening [] Non-anxious presence [] Spiritual/emotional support [] Crisis/trauma care [] Spiritual counseling [] Bereavement support [] Provided bereavement packet [] Provided Bible/devotional materials [] Provided toy/stuffed animal, coloring book to patient or family member [] Provided Communion [] Anointing/Stan[place] [] Salvation [x] Completed spiritual assessment [] Other: Impact on Illness or Injury [] Angry [] Fearful [] Anxious [] Often cries [] Exhaustion [] Unable to work [] Unable to attend caodaism [] Unable to walk/stand [] Unable to read [] Unable to drive [] Unable to eat/drink [] Unable to sleep [] Unable to be with family [] Patient intubated [] Other: Summary patient didnt require prayer--- another anahi. Time spent with patient
[2019-07-18] MEDS: HYDROmorphone 1 mg/mL INJ 1 mL 2 MG IVP (11:52)
[2019-07-18] MEDS: cefTRIAXone 1,000 MG in sodium chloride 0.9% (plus) 50 ML 100 MG IV (12:08)
--- NOTE | 2019-07-18 12:28 | P.DS_ITS ---
Discharge Providers Date of Admission: 07/17/19 00:42 Date of Discharge: July 18, 2019 Attending Provider at Admission: Royal Gay MD Attending Provider at Discharge: Dilshad Mccray MD Primary Care Provider: Casa Zhu MD Diagnoses at Discharge Discharge Diagnosis (1) Metastatic malignant neoplasm of unknown primary site: Status: Acute (2) Intractable low back pain: Status: Acute (3) Acute urinary retention: Status: Acute (4) Post-traumatic stress disorder, chronic: Status: Acute (5) Hyperlipidemia: Status: Acute Qualifiers: Hyperlipidemia type: mixed hyperlipidemia Qualified Code(s): E78.2 - Mixed hyperlipidemia (6) ASHD (arteriosclerotic heart disease): Status: Acute Reason for Visit Reason for Visit: Reason For Visit: RIGHT FLANK PAIN Hospital Course Discharge Summary: This is a 68-year-old male with newly diagnosed metastatic cancer with unknown primary who presents to [facility] due to complaints of low back pain. Patient was admitted for pain control, and consideration of hospice, and oncology consult. Patient was found to have metastatic malignant neoplasm of unknown primary site: -Lungs: Multiple bilateral pulmonary masses over are all are slightly decreased since 07/05/2019. The largest left upper lobe mass currently measures 6.7 x 5.9 cm and previously measured 7.2 x 5.6 cm. A mass in the right lower lobe posterior basal segment currently measures 4.1 x 2.7 cm and previously measured 3.7 x 2.6 cm. -Pleural space: The large left pleural effusion is unchanged. -Lymph nodes: Persisting central mediastinal and hilar adenopathy. Nodes measure up to 2.5 cm in the left hilum. A subcarinal node measures 2.9 cm. -Bones/joints: Chronic thoracic spinal ankylosis. Scattered lytic bone metastasis. For example mass in the left pedicle of T9. There is also mass in the right scapula . Scattered additional masses elsewhere in the skeleton. -Liver: Scattered relatively small liver metastasis measure up to 2 cm. These were seen on the prior chest CT and are approximately the same size. -Adrenals: Bilateral adrenal nodules are indeterminate cause and measure up to 1.8 cm on the right. -Lymph nodes: One mildly enlarged right inguinal lymph node -Bones/joints: 2 cm lytic mass in the right portion of the L2 vertebral body is associated with a mild pathologic fracture and minimal loss in height. No retropulsion. Scattered small masses in the sacrum and iliac bones as well as lumbar spine. -Other findings: Several small masses are noted in both proximal femurs, greater on the right. -MRI lumbar spine: 1. Metastatic disease at multiple levels. The largest lesion is within the right half of the L2 vertebra with extraosseous extension into the right psoas muscle. 2. Metastatic lesion within the superior left L1 vertebra with minimal extension into the ventral epidural space. There also large lesions in the left transverse process of T12 and in the right pedicle and transverse process of T11. These lesions were not included on axial images. 3. Smaller lesions are present within the vertebral body at L4 and the right pedicle of L5. -CT head Hyperdense cerebral metastasis. The largest in the RIGHT posterior frontal lobe towards the vertex measures 2.0 x 1.8 x 1.9 cm. Consistent with metastatic melanoma. There are additional smaller scattered subcortical white matter metastases. 2. Indeterminate lytic area in the LEFT temporal bone for metastatic site. -Unknown primary site, but likely metastatic melanoma given his history of melanoma of his back in the past 2 years, however patient's family was made aware that cancer is a tissue diagnosis, and patient would require a biopsy to determine the type of cancer, however patient's and family elected for no biopsy, advised risks and benefits, voiced understanding, all questions answered, declined biopsy -Patient did have a left thoracocentesis by Dr. Motta, I spoke to Dr. Motta, the pathology is pending, but in-house pleural cytology was negative for malignancy Patient was admitted for pain control, dehydration, UTI, Dr. Juarez from oncology was consulted. After discussion with patient, and family, patient's family elected for no biopsy, elected for hospice treatment, patient was discharged on home hospice. Patient and family voiced understanding, all questions answered, agreed to proceed with home hospice. Physical Exam Const: COMMON NORMALS: no acute distress and patient oriented x3 HENMT: COMMON NORMALS: normocephalic HEAD & SCALP: normocephalic Neck/C-Spine: COMMON NORMALS: no JVD Resp: COMMON NORMALS: normal respiratory effort, No retractions, No use of accessory muscles and clear to auscultation bilaterally AUSCULTATION: clear to auscultation bilaterally Cardio: COMMON NORMALS: no JVD, regular rate, regular rhythm, S1 normal heart sound present and S2 normal heart sound present RATE: regular rate RHYTHM: regular rhythm HEART SOUNDS: S1 normal heart sound present and S2 normal heart sound present GI: COMMON NORMALS: Normal to inspection, nondistended, normoactive bowel sounds present, Soft to palpation, non-tender, No hepatosplenomegaly present, no masses and no bruits PALPATION: Yes Soft to palpation and Yes No hepatosplenomegaly present Extremity: COMMON NORMALS: capillary refill normal, no clubbing, cyanosis or edema, no calf tenderness and no pedal edema Neuro: COMMON NORMALS: patient oriented x3 Psych: COMMON NORMALS: mental status grossly normal Discharge Data Data Completed and Pending: Completed Studies During Hospitalization Category Date Time Status CT angio chest w abd pel wo/w Stat Cat Scan 07/16/19 22:[address] head wo con* 7 0450 Routine Cat Scan 07/17/19 09:27 Completed XR chest 1V rosalba ble [id number] Stat Exams 07/16/19 21:53 Completed Pending at discharge Category Date Time Status Blood Culture Sta t Lab 07/16/19 22:21 Results Complete Blood Co unt w/Auto AM LABS Lab 07/19/19 04:00 Ordered Complete Blood Co unt w/Auto AM LABS Lab 07/20/19 04:00 Ordered Comprehensive Met abolic Panel AM LA BS Lab 07/19/19 04:00 Ordered Comprehensive Met abolic Panel AM LA BS Lab 07/20/19 04:00 Ordered Magnesium AM LABS Lab 07/19/19 04:00 Ordered Magnesium AM LABS Lab 07/20/19 04:00 Ordered Phosphorus AM LAB S Lab 07/19/19 04:00 Ordered Phosphorus AM LAB S Lab 07/20/19 04:00 Ordered Urine Culture Sta t Lab 07/16/19 22:36 Received Labs from last 24 hours 07/18/19 07/18/19 07/16/19 05:30 05:30 22:00 WBC 4.4 RBC 4.33 Hgb 12.4 Hct 39.2 L MCV 90.5 MCH 28.6 MCHC 31.6 RDW 13.4 Plt Count 190 MPV 10.1 Neut % (Auto) 80.9 Lymph % (Auto) 10.8 Franklin % (Auto) 7.6 Eos % (Auto) 0.2 Baso % (Auto) 0.0 Neut # (Auto) 3.5 Lymph # (Auto) 0.5 L Franklin # (Auto) 0.3 Eos # (Auto) 0.0 Baso # (Auto) 0.0 Nucleated RBC % (a uto) 0 Nucleated RBCs # 0.0 Sodium 140 Potassium 4.6 Chloride 103 Carbon Dioxide 28 Anion Gap 13.6 BUN 13 Creatinine 0.6 L GFR Calculation 133.2 H Glucose 127 H Calculated Osmolal ity 288 Calcium 8.8 Phosphorus 4.2 Magnesium 2.0 Total Bilirubin 0.3 AST 16 ALT 8 Alkaline Phosphata se 64 Total Protein 6.0 L Albumin 3.5 Globulin 2.5 Prostate Specific Ag 10.47 H Vitals: Last Vital Signs Temp 98.1 F 07/18/19 11:25 Pulse 71 07/18/19 11:25 Resp 18 07/18/19 11:52 BP 133/73 07/18/19 11:25 Pulse Ox 95 07/18/19 11:25 Discharge Plan Discharge Patient Disposition: Hospice - Home Condition: Stable Prescriptions: New dexamethasone 4 mg Tablet See Rx Instructions .ROUTE .COMPLEX Qty: 70 RF: 0 Miralax 17 gram Powder In Packet 17 g PO DAILY 30 Days Qty: 30 RF: 0 pantoprazole 40 mg Tablet,Delayed Release (Dr/Ec) 40 mg PO DAILY 30 Days Qty: 30 RF: 0 Colace 100 mg capsule 100 mg PO BID 30 Days Qty: 60 RF: 0 lactulose 10 gram packet 10 gm PO DAILY PRN (Reason: constipation) 30 Days Qty: 15 RF: 0 Bactrim DS 800-160 mg tablet 1 tab PO BID 7 Days Qty: 14 RF: 0 Continued sertraline 100 mg tablet 200 mg PO Q24H Qty: 180 RF: 0 trazodone 100 mg tablet 100 mg PO .HS Qty: 90 RF: 0 prazosin 1 mg capsule 1 mg PO BID Qty: 180 RF: 0 gabapentin 300 mg capsule 300 mg PO TID RF: 0 atenolol 25 mg tablet 25 mg PO DAILY RF: 0 pravastatin 40 mg tablet 40 mg PO DAILY RF: 0 clopidogrel 75 mg tablet 75 mg PO DAILY RF: 0 meloxicam 15 mg tablet 15 mg PO DAILY RF: 0 calcitonin (salmon) 200 unit/actuation spray,non-aerosol 1 spray intranasal DAILY RF: 0 Ranitidine 300 mg capsule 300 mg PO DAILY RF: 0 Discontinued clonazepam 0.5 mg tablet 0.5 mg PO BID PRN (Reason: anxiety) Qty: 60 RF: 2 oxycodone 5 mg tablet 5 mg PO Q4H PRN (Reason: pain) Qty: 30 RF: 0 Discharge Orders: Discharge Order (Routine); Ordered 07/18/19 Ordered By: Dilshad Mccray Referrals: [facility]) [Outside] Casa Zhu MD [Primary Care Provider] - Discharge Diet: Regular Discharge Activity: Resume usual activity Patient Instructions: Hospice Care (GEN) Discharge Attestations Time Spent in Discharge Care*: less than 30 min Quality Metrics Clinical Quality Measures During this hospital stay, did patient experience: None Coding Level of Care Code Acute Facilities Engineering Manager for [facility] Fwd Diagnoses Metastatic malignant neoplasm of unknown primary site C79.9; C80.1 Intractable low back pain M54.5 Acute urinary retention R33.8 Post-traumatic stress disorder, chronic F43.12 Hyperlipidemia E78.2 Hyperlipidemia type: mixed hyperlipidemia ASHD (arteriosclerotic heart disease) I25.10
--- NOTE | 2019-07-18 16:12 | PC.NURSE ---
Reviewed discharge plan with patient and his daughter who is at bedside. Patient is A&Ox3. Respirations even and non-labored on 2 liters of oxygen via NC. Patient will be going home on hospice. IV removed and intact. Patient will also leave with his Ha catheter in place. Patient will be picked up by Deshawn Kat.
== END 2019-07-18 16:50 | disposition hospice, home (50) ==
LOC: ER 07-17 01:31 → MEDSURG 07-17 01:40
PROVIDERS: Emergency Medicine; Admitting Provider Internal Medicine; PCP Family Medicine; Visit Provider Family Medicine
DX: M54.5 Low back pain (principal); C34.90 Malignant neoplasm of unspecified part of unspecified bronchus or lung; J90 Pleural effusion, not elsewhere classified; E78.2 Mixed hyperlipidemia; I25.10 Atherosclerotic heart disease of native coronary artery without angina pectoris; F43.12 Post-traumatic stress disorder, chronic; Z66 Do not resuscitate
CPT/HCPCS: 12345; 36415; 70450; 71045; 71275; 74178; 80053; 81001; 83605; 83690; 83735; 84100; 84153; 84484; 85025; 87040; 87086; 93005; 96361; 96365; 96366; 96375; 99283; 99285; G0378; J0131; J0696; J1170; J1956; J2270; J2405; J7030; J8540; Q9967